=== PATIENT | male | born 1950 | race African-American/Black ===

== ENCOUNTER 2017-01-18 18:44 | Observation (INO) | payer OTHER ==
[2017-01-18] MEDS ORDERED: NS 1000 ML 1,000 ML ONE ×2 (18:58→19:57)
--- NOTE | 2017-01-18 19:10 | DR.GENAD ---
HPI - PCP Primary Care Physician: nfd - HPI Comment HPI Comment: PATIENT IS WEAK AND HAVING NEAR SYNCOPAL EPISODE. ALMOST FAINTED BEFORE COMING. ONE HR AGO, HE DEVELOPE SEVERE HEADACHE WHICH IS STILL PRESENT BUT NOT SEVERE. DENIES CHEST PAIN. NO NAUSEA OR VOMITING. - Complaint/Symptoms Chief Complaint Doctors Comments: HEADACHE TIMES ONE HOUR. BP LOW IN ED. Chief Complaint:: pt c/o bad headache and weakness in his leg pt states" I was fine till a hour ago then i got a bad headache" Self Treatment fo Chief Complaint: pt pt just started on blood pressure meds 2 or 3 days ago. pt states" re never had blood pressure problems before" - Nurses notes reviewed Nurses Notes Review: Yes - Source History Provided: Patient - Mode of Arrival Mode of Arrival: Wheelchair - Timing Onset of Chief Complaint: 01/18/17 Came on: Suddenly - Duration Duration: Constant Duration: Hours - Severity Severity: Moderate PMH - PMH Past Medical History: Yes Past Medical History: Coronary Artery Disease, Diabetes, Gout, Hypertension Past Surgical History: Yes Surgical History: Tonsillectomy - Family History History of Family Medical Conditions: Yes Family Medical History: Diabetes Mellitus, Cancer, [place], Hypertension - Social History Alcohol Use: None Do you use any recreational Drugs:: No Lives With: Family Lives Where: Home - infectious screening In the last 2 months have you had wt loss of >10#?: NO Have you had fever, night sweats or hemotysis?: No Have you traveled outside the country in the last 6 months?: No Isolation: Standard ROS - Review of Systems Constitutional: Weakness, Fatigue. negative: Chills, Fever Eyes: No Symptoms Reported. negative: Eye Pain, Discharge ENTM: No Symptoms Reported. negative: Ear Pain, Nose Discharge, Nose Congestion , Throat Pain Respiratoy: Non-Productive Cough, Short of Breath. negative: Wheezing, Hemoptysis Cardiovascular: Edema Gastrointestinal/Abdominal: Other (MELE[place]) Genitourinary: Hematuria Neurological: Headache, Weakness, Dizziness Musculoskeletal: Muscle Pain Integumentary: Change in Color Hematologic/Lymphatic: Easy Bruising Endocrine: No Symptoms Reported All Other Systems: Reviewed and Negative PE - Vital Signs Vitals: Temperature 98.7 F Pulse Rate 63 Respiratory Rate 18 Blood Pressure [Right Arm] 144/73 Blood Pressure [Left Arm] 119/62 Blood Pressure 77/41 O2 Sat by Pulse Oximetry 100 - General Limitations: No Limitations General Appearance: Alert - Head Head Exam: Normal Inspection - Eyes Eye exam: Normal Appearance - ENT ENT Exam: Normal External Ear Exam External Ear Exam: Normal External Inspection TM/Canal Exam: Bilateral Normal Nose Exam: Normal Nose Exam Mouth Exam: Normal Inspection Throat Exam: Normal Inspection - Neck Neck Exam: Trachea Midline - Chest Chest Inspection: Symmetric Chest Wall Rise - Respiratory Respiratory Exam: negative: Chest Wall Tenderness Respiratory Exam: Bilateral Rhonchi, Lower Rhonchi - Cardiovascular Cardiovascular Exam: Regular Rate, Normal Rhythm, Normal Heart Sounds - Abdominal Exam Abdominal Exam: Normal Bowel Sounds, Soft. negative: Tenderness - Extremities Extremities Exam: Edema (BILATERAL) - Back Back Exam: Paraspinal Tenderness - Neurologic Neurological Exam: Alert, Oriented X3 - Psychiatric Psychiatric Exam: Normal Affect, Normal Mood - Skin Skin Exam: Normal Color MDM - Additional Information Additional Information Obtained From: Family - Differential Diagnosis Differential Diagnosis: HYPOTENSION, DEHYDRATION, NEAR SYNCOPAL EPISODES Course - Treatment Treatment: SEE ORDERS - Consultation Consultation Comments: DISCUSS PATIENT WITH DR. BARROW. HE WILL ADMIT PATIENT. - Education/Counseling Education/Counseling: Patient, Family, Education Educated On: Treatment, Diagnosis ROR - Labs Reviewed Laboratory Results Reviewed?: Yes Result Diagrams: 01/18/17 19:00 01/18/17 19:00 Laboratory: WBC 6.6 X10^3/uL (3.6-10.0) 01/18/17 19:00 RBC 3.16 X10^6/uL (4.7-6.0) L 01/18/17 19:00 Hgb 11.0 g/dL (13.5-18.0) L 01/18/17 19:00 Hct 32.5 % (42.0-54.0) L 01/18/17 19:00 MCV 102.9 fL (80.0-100.0) H 01/18/17 19:00 MCH 34.7 pg (27.0-34.0) H 01/18/17 19:00 MCHC 33.7 g/dL (33.0-35.0) 01/18/17 19:00 RDW 15.0 % (11.6-16.5) 01/18/17 19:00 Plt Count 62 X10^3/uL (150.0-450.0) L 01/18/17 19:00 MPV 11.3 fL (7.4-11.0) H 01/18/17 19:00 Neut % 66.3 % (42.0-75.0) 01/18/17 19:00 Lymph % 20.5 % (21.0-51.0) L 01/18/17 19:00 [place] % 11.0 % (0.0-13.0) 01/18/17 19:00 Eos % 1.7 % (0.9-2.9) 01/18/17 19:00 Baso % 0.5 % (0.2-1.0) 01/18/17 19:00 Neut # 4.3 x10^3/uL (2.2-4.8) 01/18/17 19:00 Lymph # 1.3 X10^3/uL (1.3-2.9) 01/18/17 19:00 [place] # 0.7 x10^3/uL (0.3-0.8) 01/18/17 19:00 Eos # 0.1 x10^3/uL (0.0-0.2) 01/18/17 19:00 Baso # 0.0 X10^3/uL (0.0-0.1) 01/18/17 19:00 Absolute Nucleated RBC 0.1 /100WBC 01/18/17 19:00 Sodium 138 mmol/L (136-145) 01/18/17 19:00 Corrected Sodium 141 mmol/L (136-145) 01/18/17 19:00 Potassium 4.7 mmol/L (3.5-5.1) 01/18/17 19:00 Chloride 105 mmol/L (98-107) 01/18/17 19:00 Carbon Dioxide 24.7 mmol/L (21-32) 01/18/17 19:00 BUN 58 mg/dL (7-18) H 01/18/17 19:00 Creatinine 2.67 mg/dL (0.70-1.30) H 01/18/17 19:00 Est GFR (MDRD) Af Amer 31 (>60) L 01/18/17 19:00 Est GFR (MDRD) Non-Af 25 (>60) L 01/18/17 19:00 Glucose 211 mg/dL (65-99) H 01/18/17 19:00 Calcium 8.4 mg/dL (8.5-10.1) L 01/18/17 19:00 Corrected Calcium 10.0 mg/dL (8.5-10.1) 01/18/17 19:00 Magnesium 1.5 mg/dL (1.7-2.9) L 01/18/17 19:00 Total Bilirubin 1.20 mg/dL (0.2-1.0) H 01/18/17 19:00 AST 89 Units/L (15-37) H 01/18/17 19:00 ALT 58 Units/L (12-78) 01/18/17 19:00 Alkaline Phosphatase 168 Units/L (46-116) H 01/18/17 19:00 Creatine Kinase 105 Units/L (39-308) 01/18/17 19:00 CK-MB (CK-2) 1.2 ng/mL (0-4.0) 01/18/17 19:00 CK/CKMB % Calc 1.1 % (<4) 01/18/17 19:00 Troponin I 0.04 ng/mL (0-1.5) 01/18/17 19:00 Total Protein 7.6 g/dL (6.4-8.2) 01/18/17 19:00 Albumin 2.0 g/dL (3.4-5.0) L 01/18/17 19:00 Globulin 5.6 g/dL (2.5-4.5) H 01/18/17 19:00 Albumin/Globulin Ratio 0.4 Ratio (1.1-2.1) L 01/18/17 19:00 Stool Description Fob tube 01/18/17 19:05 Stl Occult Blood (IFOB) Positive (NEGATIVE) A 01/18/17 19:05 - XRAY XRAY Interpreted by: Radiologist XRAY Findings: DISCUSS REPORT WITH PATIENT AND FAMILY. - EKG Rhythm: NSR (EKG NOTED) - Diagnosis Discharge Problem: Dehydration, Near syncope Hypotension Qualifiers: Hypotension type: unspecified hypotension type Qualified Code(s): I95.9 - Hypotension, unspecified - Discharge Plan Disposition: ADMITTED INPATIENT Condition: Stable - Follow ups/Referrals - Instructions
[2017-01-18 19:12] LABS: BASOPHILS % (AUTO) 0.5 % (0.2-1.0); EOSINOPHILS # (AUTO) 0.1 x10^3/uL (0.0-0.2); EOSINOPHILS % (AUTO) 1.7 % (0.9-2.9); HEMATOCRIT 32.5 % (42.0-54.0); LYMPHOCYTES # (AUTO) 1.3 X10^3/uL (1.3-2.9); LYMPHOCYTES % (AUTO) 20.5 % (21.0-51.0); MEAN CORPUSCULAR HEMOGLOBIN 34.7 pg (27.0-34.0); MEAN CORPUSCULAR HGB CONC 33.7 g/dL (33.0-35.0); MEAN CORPUSCULAR VOLUME 102.9 fL (80.0-100.0); MEAN PLATELET VOLUME 11.3 fL (7.4-11.0); MONOCYTES # (AUTO) 0.7 x10^3/uL (0.3-0.8); NEUTROPHILS # (AUTO) 4.3 x10^3/uL (2.2-4.8); NEUTROPHILS % (AUTO) 66.3 % (42.0-75.0); PLATELET COUNT 62 X10^3/uL (150.0-450.0); RED BLOOD COUNT 3.16 X10^6/uL (4.7-6.0); WHITE BLOOD COUNT 6.6 X10^3/uL (3.6-10.0)
[2017-01-18 19:26] LABS: CALCIUM 8.4 mg/dL (8.5-10.1); CARBON DIOXIDE 24.7 mmol/L (21-32); CREATININE 2.67 mg/dL (0.70-1.30); TROPONIN I 0.04 ng/mL (0-1.5)
[2017-01-18 19:30] LABS: CKMB % 1.1 % (<4); CREATINE KINASE MB 1.2 ng/mL (0-4.0); MAGNESIUM 1.5 mg/dL (1.7-2.9); TOTAL PROTEIN 7.6 g/dL (6.4-8.2)
--- NOTE | 2017-01-18 20:14 | RAD ---
HISTORY: Hypotension Study: Single view of the chest. Comparison: 09/02/2016 Findings: Cardiomegaly and mild pulmonary vascular congestion. No focal consolidations, pleural effusions or p neumothorax. Osseous structures demonstrate no acute abnormality. IMPRESSION: 1. Cardiomegaly and mild pulmonary vascular congestion. Reported By:
--- NOTE | 2017-01-18 20:47 | CT ---
HEAD CT WITHOUT IV CONTRAST CLINICAL INDICATION: Headache TECHNIQUE: Axial CT images from skull base to vertex without IV contrast.Dose reduction techniques i ncluding Automated Exposure Control (AEC) and adjustment of mA and kV were utlized. COMPARISON: 05/14/2013 FINDINGS: There is no abnormal brain parenchymal density. There is no evidence of acute infarction, intracran ial hemorrhage, mass or mass effect, or abnormal extra-axial collection. The density of the larger d ural venous sinuses is normal. The ventricles are normal in size, shape and position. The skull base and calvarium are normal. The included paranasal sinuses and mastoid air cells are predominantly cl ear. IMPRESSION: 1. No acute intracranial abnormality. Reported By:
[2017-01-18 21:06] LABS: BILIRUBIN,URINE NEGATIVE (NEGATIVE); BLOOD/HEMOGLOBIN,URINE 1+ (NEGATIVE); GLUCOSE, URINE NEGATIVE (NEGATIVE); KETONES,URINE NEGATIVE (NEGATIVE); LEUKOCYTE ESTERASE ,URINE 1+ (NEGATIVE); NITRITES,URINE NEGATIVE (NEGATIVE); PROTEIN,URINE NEGATIVE (NEGATIVE); UROBILINOGEN,URINE NORMAL (NORMAL)
[2017-01-18 21:14] LABS: APPEARANCE,URINE CLEAR (CLEAR); COLOR,URINE YELLOW (YELLOW); RBC,URINE 0-2 /HPF (NEGATIVE)
[2017-01-18 21:15] LABS: BACTERIA,URINE TRACE /HPF (NEGATIVE); SQUAMOUS EPITHELIAL CELL,UR RARE /HPF (NEGATIVE)
[2017-01-18 23:41] VITALS: BMI 32.0
[2017-01-19 02:11] LABS: CKMB % 1.3 % (<4); CREATINE KINASE MB 1.1 ng/mL (0-4.0); TROPONIN I 0.03 ng/mL (0-1.5)
[2017-01-19] MEDS: NS 1000 ML 1,000 ML IV SCH ×2 (02:28→07:20)
[2017-01-19] MEDS ORDERED: NEURONTIN CAP 100 MG PO ONE (02:47)
[2017-01-19 06:12] LABS: BASOPHILS % (AUTO) 0.8 % (0.2-1.0); EOSINOPHILS # (AUTO) 0.1 x10^3/uL (0.0-0.2); EOSINOPHILS % (AUTO) 1.6 % (0.9-2.9); HEMATOCRIT 26.9 % (42.0-54.0); HEMOGLOBIN 9.1 g/dL (13.5-18.0); LYMPHOCYTES # (AUTO) 1.3 X10^3/uL (1.3-2.9); LYMPHOCYTES % (AUTO) 22.5 % (21.0-51.0); MEAN CORPUSCULAR HEMOGLOBIN 34.8 pg (27.0-34.0); MEAN CORPUSCULAR HGB CONC 33.8 g/dL (33.0-35.0); MEAN CORPUSCULAR VOLUME 103.1 fL (80.0-100.0); MONOCYTES # (AUTO) 0.5 x10^3/uL (0.3-0.8); MONOCYTES % (AUTO) 9.4 % (0.0-13.0); NEUTROPHILS # (AUTO) 3.7 x10^3/uL (2.2-4.8); NEUTROPHILS % (AUTO) 65.7 % (42.0-75.0); PLATELET COUNT 69 X10^3/uL (150.0-450.0); RED BLOOD COUNT 2.61 X10^6/uL (4.7-6.0); RED CELL DISTRIBUTION WIDTH 14.9 % (11.6-16.5); WHITE BLOOD COUNT 5.6 X10^3/uL (3.6-10.0)
[2017-01-19 06:23] LABS: ALBUMIN 1.7 g/dL (3.4-5.0); CALCIUM 7.6 mg/dL (8.5-10.1); CARBON DIOXIDE 24.9 mmol/L (21-32); CKMB % 1.6 % (<4); COR CA(FOR HYPOALB) 9.4 mg/dL (8.5-10.1); CREATINE KINASE MB 1.2 ng/mL (0-4.0); CREATININE 2.13 mg/dL (0.70-1.30); TOTAL PROTEIN 6.4 g/dL (6.4-8.2); TROPONIN I 0.03 ng/mL (0-1.5)
[2017-01-19 13:36] VITALS: BP 136/61
== END 2017-01-19 14:40 | disposition home or self-care (01) ==
LOC: ER 18:44 → OBS 22:32
PROVIDERS: ADMIT Obstetrics & Gynecology Obstetrics; ATTEND Internal Medicine
DX: R55 Syncope and collapse (principal); N39.0 Urinary tract infection, site not specified; E86.0 Dehydration; I95.89 Other hypotension; D64.89 Other specified anemias; R79.1 Abnormal coagulation profile; R94.4 Abnormal results of kidney function studies; R06.02 Shortness of breath; R53.83 Other fatigue; I51.7 Cardiomegaly; R94.31 Abnormal electrocardiogram [ECG] [EKG]; E11.65 Type 2 diabetes mellitus with hyperglycemia; R79.82 Elevated C-reactive protein (CRP); R19.5 Other fecal abnormalities
CPT/HCPCS: 36415; 70450; 71010; 80053; 81001; 82270; 82550; 82553; 83735; 83880; 84484; 85025; 85610; 85730; 93005; 93010; 94760; 96365; 96367; 99284; A4222; G8978; G8979; G0378

== ENCOUNTER 2017-05-01 16:39 | Inpatient (IN) | payer OTHER ==
--- NOTE | 2017-05-01 16:55 | DR.GENAD ---
HPI - PCP Primary Care Physician: NFD - HPI Comment HPI Comment: HISTORY BELOW. - Complaint/Symptoms Chief Complaint Doctors Comments: LEFT FOOT PAIN, LOWER EXTREMITY EDMA AND INCREASING SOB FOR SEVERAL DAYS. ANDRES ORTA SEEM TO BE WORKING, NO FEVER. PATIENT IS A DIABETIC, HAVE PAINFUL CALUSES ON LEFT FOOT. HE IS TRYING TO REMOVE CANLUS AND AREA IS PAINFULL AND RED. NO DRAINAGE. Chief Complaint:: PT. C/O LEFT ARM PAIN THAT ACHES ALL OF THE TIME WELL DECREASED STRENGTH TO LEFT ARM. PT. C/O PAIN TO TOES ON LEFT FOOT AND SWELLING. - Nurses notes reviewed Nurses Notes Review: Yes - Source History Provided: Patient - Mode of Arrival Mode of Arrival: Ambulatory - Timing Onset of Chief Complaint: 04/17/17 Came on: Suddenly - Duration Duration: Constant Duration: Days - Severity Severity: Moderate PMH - PMH Past Medical History: Yes Past Medical History: Coronary Artery Disease, Diabetes, Gout, Hypertension Past Surgical History: Yes Surgical History: Tonsillectomy, Other Past Surgical History Comment: PACEMAKER/DEFIBILLATOR - Family History History of Family Medical Conditions: Yes Family Medical History: Diabetes Mellitus, Cancer, [place], Hypertension - Social History Does patient currently use any type of tobacco product: Yes Have you used tobacco products in the last 12 months: Yes Type of Tobacco Use: Cigarettes How many years tobacco product used: 30 Does any household member use tobacco: No Alcohol Use: None Do you use any recreational Drugs:: No Lives With: Significant Other Lives Where: Home - infectious screening In the last 2 months have you had wt loss of >10#?: NO Have you had fever, night sweats or hemotysis?: No Have you traveled outside the country in the last 6 months?: No Isolation: Standard ROS - Review of Systems Constitutional: Weakness, Fatigue. negative: Chills, Fever Eyes: No Symptoms Reported. negative: Eye Pain, Discharge ENTM: No Symptoms Reported. negative: Ear Pain, Nose Discharge, Nose Congestion , Throat Pain Respiratoy: Non-Productive Cough, Short of Breath, Wheezing. negative: Hemoptysis Cardiovascular: Chest Pain, Edema Gastrointestinal/Abdominal: No Symptoms Reported, Abdominal Pain, Diarrhea Neurological: Headache, Weakness Musculoskeletal: Muscle Pain, Right, Left, Leg, Foot Integumentary: Change in Color Hematologic/Lymphatic: Easy Bruising Endocrine: No Symptoms Reported All Other Systems: Reviewed and Negative PE - Vital Signs Vitals: Temperature 98.0 F Pulse Rate 68 Respiratory Rate 17 Blood Pressure [Right Arm] 136/61 Blood Pressure [Left Arm] 128/59 Blood Pressure 142/72 O2 Sat by Pulse Oximetry 100 - General Limitations: No Limitations General Appearance: Alert - Head Head Exam: Normal Inspection - Eyes Eye exam: Normal Appearance - ENT ENT Exam: Normal External Ear Exam External Ear Exam: Normal External Inspection TM/Canal Exam: Bilateral Normal Nose Exam: Normal Nose Exam Mouth Exam: Normal Inspection Throat Exam: Normal Inspection - Neck Neck Exam: Trachea Midline - Chest Chest Inspection: Symmetric Chest Wall Rise - Respiratory Respiratory Exam: Respiratory Distress Respiratory Exam: Bilateral Wheezing, Bilateral Rhonchi, Upper Rhonchi, Lower Wheezing, Lower Rhonchi - Cardiovascular Cardiovascular Exam: Regular Rate, Normal Rhythm, Tachycardia - Abdominal Exam Abdominal Exam: Normal Bowel Sounds, Soft. negative: Tenderness - Extremities Extremities Exam: Tenderness, Edema, Other (TOES TENDER RIGHT 2ND AND 3RD TOES . FOOT AND LEG SWOLLEN AND TENDER.) - Back Back Exam: Normal Inspection - Neurologic Neurological Exam: Alert, Oriented X3 - Psychiatric Psychiatric Exam: Normal Affect, Normal Mood - Skin Skin Exam: Erythema MDM - Additional Information Additional Information Obtained From: Family - Differential Diagnosis Differential Diagnosis: CHF. PULMONARY EDEMA, PNEUMONIA, [place], CELLULITIS. LOWER EXTREMITY PAIN Course - Treatment Treatment: SEE ORDERS. LASIX 80MG IV, NO URINE OUTPUT. BUMEX IMG IV, - Consultation Consultation Comments: DISCUSS PATIENT WITH DR. HOFFMANN. HE WILL ADMIT PATIENT. - Education/Counseling Education/Counseling: Patient, Education Educated On: Treatment, Diagnosis, Needs for Follow Up ROR - Labs Reviewed Laboratory Results Reviewed?: Yes Result Diagrams: 05/01/17 17:23 05/01/17 17:23 Laboratory: WBC 5.2 X10^3/uL (3.6-10.0) 05/01/17 17:23 RBC 3.16 X10^6/uL (4.7-6.0) L 05/01/17 17:23 Hgb 11.4 g/dL (13.5-18.0) L 05/01/17 17:23 Hct 32.7 % (42.0-54.0) L 05/01/17 17:23 MCV 103.7 fL (80.0-100.0) H 05/01/17 17:23 MCH 36.0 pg (27.0-34.0) H 05/01/17 17: MCHC 34.7 g/dL (33.0-35.0) 05/01/17: RDW 14.2 % (11.6-16.5) 05/01/17: Plt Count 47 X10^3/uL (150.0-450.0) L 05/01/17: Plt Count Comment Decreased (ADEQUATE) 05/01/17: MPV 11.6 fL (7.4-11.0) H 05/01/17 17: Neut % 64.7 % (42.0-75.0) 05/01/17: Lymph % 22.4 % (21.0-51.0) 05/01/17: [place] % 10.8 % (0.0-13.0) 05/01/17: Eos % 1.8 % (0.9-2.9) 05/01/17: Baso % 0.3 % (0.2-1.0) 05/01/17 17: Neut # 3.4 x10^3/uL (2.2-4.8) 05/01/17 17: Lymph # 1.2 X10^3/uL (1.3-2.9) L 05/01/17 17: [place] # 0.6 x10^3/uL (0.3-0.8) 05/01/17: Eos # 0.1 x10^3/uL (0.0-0.2) 05/01/17 17: Baso # 0.0 X10^3/uL (0.0-0.1) 05/01/17: Absolute Nucleated RBC 0.1 /100WBC 05/01/17 17: Plt Morphology Comment Normal (NORMAL) 05/01/17 17: RBC Morphology Abnormal (NORMAL) 05/01/17 17: Hypochromasia Slight A 05/01/17 17:23 Anisocytosis Slight A 05/01/17 17: Microcytosis Slight A 05/01/17 17: Macrocytosis Slight A 05/01/17 17:23 Sodium 137 mmol/L (136-145) 05/01/17 17:23 Corrected Sodium 141 mmol/L (136-145) 05/01/17 17:23 Potassium 3.6 mmol/L (3.5-5.1) 05/01/17 17:23 Chloride 103 mmol/L (98-107) 05/01/17 17:23 Carbon Dioxide 28.6 mmol/L (21-32) 05/01/17 17:23 BUN 33 mg/dL (7-18) H 05/01/17 17:23 Creatinine 1.87 mg/dL (0.70-1.30) H 05/01/17 17:23 Est GFR (MDRD) Af Amer 46 (>60) L 05/01/17 17:23 Est GFR (MDRD) Non-Af 38 (>60) L 05/01/17 17:23 Glucose 257 mg/dL (65-99) H 05/01/17 17:23 Calcium 8.1 mg/dL (8.5-10.1) L 05/01/17 17:23 Corrected Calcium 9.8 mg/dL (8.5-10.1) 05/01/17 17:23 Total Bilirubin 1.50 mg/dL (0.2-1.0) H 05/01/17 17:23 AST 131 Units/L (15-37) H 05/01/17 17:23 ALT 70 Units/L (12-78) 05/01/17 17:23 Alkaline Phosphatase 247 Units/L (46-116) H 05/01/17 17:23 Creatine Kinase 207 Units/L (39-308) 05/01/17 17:23 CK-MB (CK-2) 1.9 ng/mL (0-4.0) 05/01/17 17:23 CK/CKMB % Calc 0.9 % (<4) 05/01/17 17:23 Troponin I 0.02 ng/mL (0-1.5) 05/01/17 17:23 B-Natriuretic Peptide 533 pg/mL (0-79) H* 05/01/17 17:23 Total Protein 7.2 g/dL (6.4-8.2) 05/01/17 17:23 Albumin 1.9 g/dL (3.4-5.0) L 05/01/17 17:23 Globulin 5.3 g/dL (2.5-4.5) H 05/01/17 17:23 Albumin/Globulin Ratio 0.4 Ratio (1.1-2.1) L 05/01/17 17:23 - XRAY XRAY Interpreted by: Radiologist XRAY Findings: REPORT DISCUSS WITH PATIENT. - EKG Rhythm: Paced (EKG NOTED.) - Diagnosis Discharge Problem: Pulmonary congestion CHF (congestive heart failure) Qualifiers: Congestive heart failure type: combined Congestive heart failure chronicity: acute on chronic Qualified Code(s): I50.43 - Acute on chronic combined systolic (congestive) and diastolic (congestive) heart failure Cellulitis Qualifiers: Site of cellulitis: extremity Site of cellulitis of extremity: lower extremity Laterality: left Qualified Code(s): L03.116 - Cellulitis of left lower limb - Discharge Plan Disposition: ADMITTED INPATIENT Condition: Stable - Follow ups/Referrals - Instructions
[2017-05-01 17:35] LABS: BASOPHILS % (AUTO) 0.3 % (0.2-1.0); EOSINOPHILS # (AUTO) 0.1 x10^3/uL (0.0-0.2); EOSINOPHILS % (AUTO) 1.8 % (0.9-2.9); HEMATOCRIT 32.7 % (42.0-54.0); HEMOGLOBIN 11.4 g/dL (13.5-18.0); LYMPHOCYTES # (AUTO) 1.2 X10^3/uL (1.3-2.9); LYMPHOCYTES % (AUTO) 22.4 % (21.0-51.0); MEAN CORPUSCULAR HGB CONC 34.7 g/dL (33.0-35.0); MEAN CORPUSCULAR VOLUME 103.7 fL (80.0-100.0); MEAN PLATELET VOLUME 11.6 fL (7.4-11.0); MONOCYTES # (AUTO) 0.6 x10^3/uL (0.3-0.8); MONOCYTES % (AUTO) 10.8 % (0.0-13.0); NEUTROPHILS # (AUTO) 3.4 x10^3/uL (2.2-4.8); NEUTROPHILS % (AUTO) 64.7 % (42.0-75.0); PLATELET COUNT 47 X10^3/uL (150.0-450.0); RED BLOOD COUNT 3.16 X10^6/uL (4.7-6.0); RED CELL DISTRIBUTION WIDTH 14.2 % (11.6-16.5); WHITE BLOOD COUNT 5.2 X10^3/uL (3.6-10.0)
[2017-05-01 17:48] LABS: CALCIUM 8.1 mg/dL (8.5-10.1); CARBON DIOXIDE 28.6 mmol/L (21-32); CREATININE 1.87 mg/dL (0.70-1.30); TROPONIN I 0.02 ng/mL (0-1.5)
[2017-05-01 17:51] LABS: ANISOCYTOSIS SLIGHT; HYPOCHROMASIA SLIGHT; MICROCYTOSIS SLIGHT; PLATELET MORPHOLOGY COMMENT NORMAL (NORMAL)
[2017-05-01 17:52] LABS: ALBUMIN 1.9 g/dL (3.4-5.0); CKMB % 0.9 % (<4); COR CA(FOR HYPOALB) 9.8 mg/dL (8.5-10.1); CREATINE KINASE MB 1.9 ng/mL (0-4.0); TOTAL PROTEIN 7.2 g/dL (6.4-8.2)
--- NOTE | 2017-05-01 18:13 | RAD ---
HISTORY: Chest pain and left upper extremity pain Study: Single-view chest Comparison: January 18, 2017 Findings: The trachea is midline. The cardiac silhouette is enlarged in size. A cardiac pacing device is in p lace. There is pulmonary vascular congestion which is similar in appearance to prior exam. No focal consolidation or pleural effusion is identified. The bony thorax is grossly intact. IMPRESSION: 1. Cardiomegaly and pulmonary vascular congestion which is similar in appearance to prior exams Reported By:
--- NOTE | 2017-05-01 18:17 | RAD ---
Left foot two views Indication: Left foot pain. Findings: There is mild great toe MTP joint degenerative change and great toe IP joint degenerative change. No displaced fracture seen. Minimal regularity of the great toe proximal phalanx noted. This is possibly chronic. There is soft tissue swelling over the forefoot. Impression: 1. Remodeling of the 5th toe proximal phalanx, probably chronic. Correlate clinically for any signs of infection. 2. Irregularity of the great toe proximal phalanx. Correlate clinically for any history of pain or t rauma air. 3. Diffuse soft tissue swelling without displaced fracture. Mild degenerative changes. Reported By:
[2017-05-01 18:58] LABS: BILIRUBIN,URINE NEGATIVE (NEGATIVE); BLOOD/HEMOGLOBIN,URINE 2+ (NEGATIVE); GLUCOSE, URINE 1+ (NEGATIVE); KETONES,URINE NEGATIVE (NEGATIVE); LEUKOCYTE ESTERASE ,URINE NEGATIVE (NEGATIVE); NITRITES,URINE NEGATIVE (NEGATIVE); PROTEIN,URINE NEGATIVE (NEGATIVE); UROBILINOGEN,URINE 1+ (NORMAL)
[2017-05-01] MEDS ORDERED: LASIX IVP ONE (19:01)
[2017-05-01] MEDS ORDERED: LASIX ONE (19:18)
[2017-05-01 19:31] LABS: APPEARANCE,URINE CLEAR (CLEAR); BACTERIA,URINE NEGATIVE /HPF (NEGATIVE); COLOR,URINE YELLOW (YELLOW); RBC,URINE 0-2 /HPF (NEGATIVE); SQUAMOUS EPITHELIAL CELL,UR NEGATIVE /HPF (NEGATIVE)
[2017-05-01] MEDS ORDERED: BUMEX INJ 1 MG VIAL IVP ONE (21:38)
[2017-05-01] MEDS ORDERED: ZOFRAN INJ 4 MG VIAL IVP PRN (21:41)
[2017-05-01] MEDS: NS 1000 ML 1,000 ML IV SCH (22:45)
[2017-05-01] MEDS: MORPHINE SULFATE INJ 4 MG IVP PRN (22:55)
[2017-05-01 23:07] LABS: CKMB % 0.8 % (<4); CREATINE KINASE MB 1.6 ng/mL (0-4.0); TROPONIN I 0.03 ng/mL (0-1.5)
[2017-05-02 00:34] VITALS: BMI 32.6
[2017-05-02] MEDS: CLEOCIN 600 MG IV PREMIX 600 MG/50 ML BAG IV SCH ×2 (03:05→13:56)
[2017-05-02 05:21] LABS: BASOPHILS % (AUTO) 0.7 % (0.2-1.0); EOSINOPHILS # (AUTO) 0.1 x10^3/uL (0.0-0.2); EOSINOPHILS % (AUTO) 1.8 % (0.9-2.9); HEMATOCRIT 30.6 % (42.0-54.0); HEMOGLOBIN 10.6 g/dL (13.5-18.0); LYMPHOCYTES # (AUTO) 1.3 X10^3/uL (1.3-2.9); LYMPHOCYTES % (AUTO) 28.5 % (21.0-51.0); MEAN CORPUSCULAR HEMOGLOBIN 35.8 pg (27.0-34.0); MEAN CORPUSCULAR HGB CONC 34.5 g/dL (33.0-35.0); MEAN CORPUSCULAR VOLUME 103.6 fL (80.0-100.0); MONOCYTES # (AUTO) 0.5 x10^3/uL (0.3-0.8); MONOCYTES % (AUTO) 10.9 % (0.0-13.0); NEUTROPHILS # (AUTO) 2.7 x10^3/uL (2.2-4.8); NEUTROPHILS % (AUTO) 58.1 % (42.0-75.0); PLATELET COUNT 66 X10^3/uL (150.0-450.0); RED BLOOD COUNT 2.95 X10^6/uL (4.7-6.0); RED CELL DISTRIBUTION WIDTH 14.4 % (11.6-16.5); WHITE BLOOD COUNT 4.7 X10^3/uL (3.6-10.0)
[2017-05-02 05:27] LABS: ALBUMIN 1.7 g/dL (3.4-5.0); CALCIUM 7.6 mg/dL (8.5-10.1); CARBON DIOXIDE 30.4 mmol/L (21-32); COR CA(FOR HYPOALB) 9.4 mg/dL (8.5-10.1); CREATININE 1.79 mg/dL (0.70-1.30); MAGNESIUM 1.3 mg/dL (1.7-2.9); TOTAL PROTEIN 6.6 g/dL (6.4-8.2)
[2017-05-02 05:44] LABS: CREATINE KINASE MB 1.6 ng/mL (0-4.0); TROPONIN I 0.04 ng/mL (0-1.5)
[2017-05-02] MEDS: HumuLIN R SUBCUT PRN ×3 (06:04→20:06)
[2017-05-02] MEDS ORDERED: K-DUR TAB 20 MEQ PO SCH (09:00)
[2017-05-02] MEDS: LASIX IVP SCH ×2 (09:34→20:07)
[2017-05-02] MEDS ORDERED: NITROSTAT SL PRN (10:16)
[2017-05-02] MEDS ORDERED: PATIENT'S HOME MEDICATION (Hydralazine Hcl [Hydralazine Hcl 50 Mg] 50 MG) PO SCH (10:30)
[2017-05-02] MEDS ORDERED: PATIENT'S HOME MEDICATION (Ascorbic Acid [Vitamin C] 1,000 MG) PO SCH (10:30)
[2017-05-02] MEDS ORDERED: VITAMIN C ONE (10:31)
[2017-05-02] MEDS ORDERED: APRESOLINE TAB 25 MG ONE (10:31)
[2017-05-02] MEDS: COREG TAB 25 MG PO SCH (10:36)
[2017-05-02] MEDS: ALDACTONE TAB 25 MG PO SCH (10:36)
[2017-05-02] MEDS: NEURONTIN CAP 300 MG PO SCH ×3 (10:37→21:06)
[2017-05-02] MEDS: ZANTAC PO SCH (10:37)
[2017-05-02] MEDS: ASPIRIN EC 81 MG PO SCH (10:37)
[2017-05-02] MEDS: FLOMAX PO SCH (10:37)
[2017-05-02] MEDS: FORTAZ or TAZICEF INJ 1 GM in NS 50 ML IV + SPIKE MINIBAG* 50 ML IV SCH ×3 (10:42→21:06)
[2017-05-02] MEDS ORDERED: PHARMACY CONSULT - VANCOMYCIN XX SCH (11:00)
[2017-05-02] MEDS ORDERED: HumuLIN R SUBCUT PRN (11:00)
[2017-05-02] MEDS: K-DUR TAB 20 MEQ PO SCH (11:02)
[2017-05-02] MEDS: VANCOMYCIN 1 GM PREMIX (ADDVANTAGE) 250 ML IV SCH ×2 (11:03→20:05)
[2017-05-02] MEDS: VITAMIN C PO SCH (11:19)
[2017-05-02] MEDS ORDERED: INSULIN ASPART 8 UNIT SC SCH (12:00)
[2017-05-02] MEDS: APRESOLINE TAB 25 MG PO SCH ×2 (14:05→21:06)
--- NOTE | 2017-05-02 15:47 | DR.H&P ---
H&P - History & Physical for Day of: H&P Date: 05/01/17 - Chief Complaint Chief Complaint: left foot pain, lower extremity edma - Allergies Allergies/Adverse Reactions: Allergies Allergy/AdvReac Type Severity Reaction Status Date / Time MS Haloperidol [From Haldol] Allergy Mild Verified 05/01/17 16:43 MS Acetaminophen Allergy Unknown Verified 05/01/17 16:43 [From Tylenol] MS Amitriptyline Allergy Verified 05/01/17 16:43 [From Elavil] MS Pork Allergy AdvReac Verified 05/01/17 16:43 [Pork Allergy] - History of Present Illness History of Present Illness: Patient is a 66yo male who presented to the emergency room with complaint of left foot pain, lower extremity edema and increasing shortness of breath for the past several days. Patient also complained of left arm pain and decreased strength. Patient has a history of coronary artery disease, Diabetes Mellitus typ2, Gout, Hypertension, pacemaker/ defibrillator. Patient admitted with diagnosis of Labs on arrival within normal limits with the exception of RBC 3.16, Hgb 11.4, Hct 32.7, MCV 103.7, MCH 36.0, Plt count 47, MPV 11.6, Hypochromasia Slight A, Anisocytosis slight a, microcytosis slight a, macrocytosis slight a, BUN 33, Creatinine 1.87, Est GFR 38, Total bilirubin 1.50, AST 131, Alkaline phosphatase 247, BNP 533, Albumin 1.9, Globulin 5.3, Albumin/globulin ratio 0.4. Foot xray remodeling of the 5th toe proximal phalanx chronic, irregularity of the great toe, diffuse soft tissue swelling without displaced fracture, mild degenerative changes. Chest Xray cardiomegaly and pulmonary vascular congestion which is similar in appearance to prior exam. EKG shows ventricular paced rate of 70. Patient admitted started on NS@20ml/hr, Cleocin IV, Lasix 40mg IV BID. - Past Medical History Past Medical History: Coronary Artery Disease, Diabetes, Gout, Hypertension Additional Medical History: pacemaker, defibrillator - Past Surgical History Surgical History: Tonsillectomy, Other - Family History Family Medical History: Diabetes Mellitus, Cancer, [place], Hypertension - Social History Does patient currently use any type of tobacco product: Yes Have you used tobacco products in the last 12 months: Yes Type of Tobacco Use: Cigarettes How many years tobacco product used: 30 Does any household member use tobacco: No Alcohol Use: None Drug Use: None - Medications Home Medications: Ascorbic Acid [Vitamin C] 1,000 mg PO DAILY 05/02/17 [History Confirmed 05/02/17 ] Aspirin EC [ASPIRIN EC 81 MG *] 81 mg PO DAILY 05/02/17 [History Confirmed 05/02] Carvedilol [Coreg Tab 25 mg] 25 mg PO DAILY 05/02/17 [History Confirmed 05/02/17 ] Furosemide 80 mg PO BID 05/02/17 [History Confirmed 05/02/17] Gabapentin 300 mg PO TID 05/02/17 [History Confirmed 05/02/17] Hydralazine HCl [Hydralazine HCl 50 mg] 50 mg PO TID 05/02/17 [History Confirmed 05/02/17] Insulin Aspart [NovoLog insulin 10 mL vial] 8 unit SC TIDWM 05/02/17 [History Confirmed 05/02/17] Insulin Glargine (Lantus) [LANTUS INSULIN 10 ML VIAL *] 35 units SC HS 05/02/17 [History Confirmed 05/02/17] Nitroglycerin Sublingual [NITROSTAT SUBLING TAB 0.4 MG *] 0.4 mg SL PRN PRN [History Confirmed 05/02/17] Potassium Chloride [K-Dur Tab 20 Meq] 20 meq PO DAILY 05/02/17 [History Confirmed 05/02/17] Ranitidine HCl [Ranitidine [address]] 150 mg PO DAILY 05/02/17 [History Confirmed 05/02/17] Spironolactone 25 mg PO DAILY 05/02/17 [History Confirmed 05/02/17] Tamsulosin HCl [Flomax] 0.4 mg PO DAILY 05/02/17 [History Confirmed 05/02/17] - Review of Systems Constitutional: Weakness Eyes: No Symptoms Reported ENT: No Symptoms Reported Respiratory: Shortness of Breath Cardiovascular: Edema Gastrointestinal: No Symptoms Reported Genitourinary: No Symptoms Reported Musculoskeletal: Leg Pain, Foot Pain Skin: No Symptoms Reported Neurological: No Symptoms Reported - Physical Exam Vital Signs: 98.0, 68, 17, 100%, 142/42. Oriented: Normal Eyes: Normal Ear: Normal Nose: Normal Throat: Normal Respiratory: Clear Throughout Cardiovascular: Edema (lower extremity bilateral) : Normal Auscultation: Bowel Sounds: Normal Palpation: Normal Tenderness: Normal Skin: Normal Musculoskeletal: Swelling (lower extremity) Psychiatric: Normal Mood Description: Calm, Appropriate Affect: Normal Speech Pattern: Clear, Appropriate - Assessment/Plan (1) Cellulitis Qualifiers: Site of cellulitis: extremity Site of cellulitis of extremity: lower extremity Site of cellulitis of trunk: S Laterality: left Qualified Code(s ): L03.116 - Cellulitis of left lower limb Status: Acute Plan: cleocin 600mg IV Q8hr (2) Pulmonary congestion Status: Acute Plan: lasix 40mg IV BID (3) CHF (congestive heart failure) Qualifiers: Congestive heart failure type: combined Congestive heart failure chronicity : acute on chronic Qualified Code(s): I50.43 - Acute on chronic combined systolic (congestive) and diastolic (congestive) heart failure Status: Chronic Plan: lasix 40mg IV BID (4) Diabetes mellitus Qualifiers: Diabetes mellitus type: D Diabetes mellitus complication status: D Diabetes mellitus complication detail: D Diabetic retinopathy severity: D Proliferative retinopathy type: P Diabetes mellitus macular edema: D Diabetes mellitus long-term insulin use: D Laterality: L Chronic kidney disease stage: C Status: Chronic Plan: OTBS ACHS regular insulin SSC
--- NOTE | 2017-05-02 15:51 | PCM.PROG ---
Progress Note - Progress Note for Day of Date: 05/02/17 - Subjective Subjective: Patient is a 66yo male who was admitted with CHF, pulmonary congestion and R foot pain and cellulitis. Patient states he has been having pain in his right foot and bilateral lower extremity edema that has not improved with his Lasix 80mg PO BID at home. Vital signs this am 98.4, 65, 15, 100%, 125/68. Labs this within normal limits with the exception of RBC 2.95, Hgb 10.6, Hct 30.6, MCV 103.6, MCH 35.8, Plt count 66, INR 1.40, BUN 32, Creatinine 1.79, Est GFR 40, Glucose 296, Clacium 7.6, Magnesium 1.3, Total bilirubin 1.10, AST 115, Alkaline phosphatase 247, Albumin 1.7, Globulin 4.9, albumin/globulin ratio 0.3. Cardiac enzymes have remained normal and EKG remained with a ventricular paced rhythm. We are going to discontinue cleocin and start vancomycin and fortaz. We are also going to continue home medications with the exception of Lasix. We are also going to order an ECHO for cardiac workup due to CHF and pulmonary congestion, 3 phase bone scan related to leg pain. - Past Medical Family Social History Past Med/Fam/Surg Hx: No changes since H&P Allergies: Allergies MS Haloperidol [From Haldol] Allergy (Mild, Verified 05/01/17 16:43) MS Acetaminophen [From Tylenol] Allergy (Unknown, Verified 05/01/17 16:43) "DOCTORS TOLD ME NOT TO TAKE " DUE TO LIVER ISSUES MS Amitriptyline [From Elavil] Allergy (Verified 05/01/17 16:43) MS Pork Allergy [Pork Allergy] Adverse Reaction (Verified 05/01/17 16:43) - Review of Systems ROS: No change since H&P - Vital Signs and I&O's Vital Signs: 98.4, 65, 15, 100%, 125/68 Intake and Output: Intake & Output 04/30/17 05/01/17 05/02/17 05/03/17 11:59 11:59 11:59 11:59 Intake Total 817 600 Output Total 1700 1450 Balance -883 -850 - Physical Exam Oriented: Normal Eyes: Normal Ear: Normal Nose: Normal Throat: Normal Respiratory: Normal Cardiovascular: Edema (lower extremity bilateral) : Normal Auscultation: Bowel Sounds: Normal Palpation: Normal Tenderness: Normal Skin: Normal Musculoskeletal: Swelling (lower extremity) Psychiatric: Normal Mood Description: Calm, Appropriate Affect: Normal Speech Pattern: Clear, Appropriate - Laboratory and Diagnostics Result Diagrams: 05/02/17 04:50 05/02/17 04:50 Labs: Laboratory WBC 4.7 X10^3/uL (3.6-10.0) 05/02/17 04:50 RBC 2.95 X10^6/uL (4.7-6.0) L 05/02/17 04:50 Hgb 10.6 g/dL (13.5-18.0) L 05/02/17 04:50 Hct 30.6 % (42.0-54.0) L 05/02/17 04:50 MCV 103.6 fL (80.0-100.0) H 05/02/17 04:50 MCH 35.8 pg (27.0-34.0) H 05/02/17 04:50 MCHC 34.5 g/dL (33.0-35.0) 05/02/17 04:50 RDW 14.4 % (11.6-16.5) 05/02/17 04:50 Plt Count 66 X10^3/uL (150.0-450.0) L 05/02/17 04:50 Plt Count Comment Decreased (ADEQUATE) 05/01/17 17:23 MPV 10.0 fL (7.4-11.0) 05/02/17 04:50 Neut % 58.1 % (42.0-75.0) 05/02/17 04:50 Lymph % 28.5 % (21.0-51.0) 05/02/17 04:50 [place] % 10.9 % (0.0-13.0) 05/02/17 04:50 Eos % 1.8 % (0.9-2.9) 05/02/17 04:50 Baso % 0.7 % (0.2-1.0) 05/02/17 04:50 Neut # 2.7 x10^3/uL (2.2-4.8) 05/02/17 04:50 Lymph # 1.3 X10^3/uL (1.3-2.9) 05/02/17 04:50 [place] # 0.5 x10^3/uL (0.3-0.8) 05/02/17 04:50 Eos # 0.1 x10^3/uL (0.0-0.2) 05/02/17 04:50 Baso # 0.0 X10^3/uL (0.0-0.1) 05/02/17 04:50 Absolute Nucleated RBC 0.1 /100WBC 05/02/17 04:50 Plt Morphology Comment Normal (NORMAL) 05/01/17 17:23 RBC Morphology Abnormal (NORMAL) 05/01/17 17:23 Hypochromasia Slight A 05/01/17 17:23 Anisocytosis Slight A 05/01/17 17:23 Microcytosis Slight A 05/01/17 17:23 Macrocytosis Slight A 05/01/17 17:23 INR Target Range - 05/02/17 04:50 INR 1.40 (0.8-1.3) H 05/02/17 04:50 PTT 35.2 SECONDS (22.9-36.5) 05/02/17 04:50 PTT Comment - 05/02/17 04:50 Sodium 139 mmol/L (136-145) 05/02/17 04:50 Corrected Sodium 144 mmol/L (136-145) 05/02/17 04:50 Potassium 3.7 mmol/L (3.5-5.1) 05/02/17 04:50 Chloride 103 mmol/L (98-107) 05/02/17 04:50 Carbon Dioxide 30.4 mmol/L (21-32) 05/02/17 04:50 BUN 32 mg/dL (7-18) H 05/02/17 04:50 Creatinine 1.79 mg/dL (0.70-1.30) H 05/02/17 04:50 Est GFR (MDRD) Af Amer 49 (>60) L 05/02/17 04:50 Est GFR (MDRD) Non-Af 40 (>60) L 05/02/17 04:50 Glucose 296 mg/dL (65-99) H 05/02/17 04:50 Calcium 7.6 mg/dL (8.5-10.1) L 05/02/17 04:50 Corrected Calcium 9.4 mg/dL (8.5-10.1) 05/02/17 04:50 Magnesium 1.3 mg/dL (1.7-2.9) L 05/02/17 04:50 Total Bilirubin 1.10 mg/dL (0.2-1.0) H 05/02/17 04:50 AST 115 Units/L (15-37) H 05/02/17 04:50 ALT 61 Units/L (12-78) 05/02/17 04:50 Alkaline Phosphatase 247 Units/L (46-116) H 05/02/17 04:50 Creatine Kinase 165 Units/L (39-308) 05/02/17 04:40 CK-MB (CK-2) 1.6 ng/mL (0-4.0) 05/02/17 04:40 CK/CKMB % Calc 1.0 % (<4) 05/02/17 04:40 Troponin I 0.04 ng/mL (0-1.5) 05/02/17 04:40 B-Natriuretic Peptide 533 pg/mL (0-79) H* 05/01/17 17:23 Total Protein 6.6 g/dL (6.4-8.2) 05/02/17 04:50 Albumin 1.7 g/dL (3.4-5.0) L 05/02/17 04:50 Globulin 4.9 g/dL (2.5-4.5) H 05/02/17 04:50 Albumin/Globulin Ratio 0.3 Ratio (1.1-2.1) L 05/02/17 04:50 Specimen Type Clean catch urine 05/01/17 18:50 Urine Color Yellow (YELLOW) 05/01/17 18:50 Urine Appearance Clear (CLEAR) 05/01/17 18:50 Urine pH 5.0 (5.0 - 8.0) 05/01/17 18:50 Ur Specific [place] 1.010 (1.000-1.030) 05/01/17 18:50 Urine Protein Negative (NEGATIVE) 05/01/17 18:50 Urine Glucose (UA) 1+ (NEGATIVE) 05/01/17 18:50 Urine Ketones Negative (NEGATIVE) 05/01/17 18:50 Urine Occult Blood 2+ (NEGATIVE) 05/01/17 18:50 Urine Nitrite Negative (NEGATIVE) 05/01/17 18:50 Urine Bilirubin Negative (NEGATIVE) 05/01/17 18:50 Urine Urobilinogen 1+ (NORMAL) 05/01/17 18:50 Ur Leukocyte Esterase Negative (NEGATIVE) 05/01/17 18:50 Urine RBC 0-2 /HPF (NEGATIVE) 05/01/17 18:50 Urine WBC 0-2 /HPF (NEGATIVE) 05/01/17 18:50 Ur Squamous Epith Cells Negative /HPF (NEGATIVE) 05/01/17 18:50 Urine Bacteria Negative /HPF (NEGATIVE) 05/01/17 18:50 Ur Culture Indicated? No/not indicated 05/01/17 18:50 - Plan (1) Cellulitis Status: Acute Qualifiers: Site of cellulitis: extremity Site of cellulitis of extremity: lower extremity Site of cellulitis of trunk: S Laterality: left Qualified Code(s ): L03.116 - Cellulitis of left lower limb Plan: cleocin 600mg IV Q8hr (2) Pulmonary congestion Status: Acute Plan: lasix 40mg IV BID (3) CHF (congestive heart failure) Status: Chronic Qualifiers: Congestive heart failure type: combined Congestive heart failure chronicity : acute on chronic Qualified Code(s): I50.43 - Acute on chronic combined systolic (congestive) and diastolic (congestive) heart failure Plan: lasix 40mg IV BID (4) Diabetes mellitus Status: Chronic Qualifiers: Diabetes mellitus type: D Diabetes mellitus complication status: D Diabetes mellitus complication detail: D Diabetic retinopathy severity: D Proliferative retinopathy type: P Diabetes mellitus macular edema: D Diabetes mellitus intermediate teacher insulin use: D Laterality: L Chronic kidney disease stage: C Plan: OTBS ACHS regular insulin SSC (5) Hypertension Status: Acute Qualifiers: Hypertension type: H Plan: hydralazine 50mg TID, Coreg 25mg daily (6) BPH (benign prostatic hypertrophy) Status: Chronic Plan: Flomax 0.4mg daily (7) Neuropathic pain Status: Chronic Plan: gabapentin 300mg TID
[2017-05-02] MEDS ORDERED: MAGNESIUM SULFATE 1 GM/100 mL PREMIX 1 GM/100 ML BAG IV ONE ×2 (18:23→20:00)
[2017-05-02] MEDS: ALBUMIN HUMAN 25%- 100ML 100 ML IV SCH (18:27)
[2017-05-02] MEDS: MAGNESIUM SULFATE 1 GM/100 mL PREMIX 1 GM/100 ML BAG IV SCH ×2 (18:27→20:05)
[2017-05-02] MEDS: SNACK - Diabetic Appropriate PO SCH (20:05)
[2017-05-02] MEDS: LANTUS SC SCH (20:06)
[2017-05-02] MEDS: NS 1000 ML 1,000 ML IV SCH (21:15)
[2017-05-02] MEDS: MORPHINE SULFATE INJ 4 MG IVP PRN (22:18)
[2017-05-03 04:40] LABS: BASOPHILS % (AUTO) 0.4 % (0.2-1.0); EOSINOPHILS # (AUTO) 0.1 x10^3/uL (0.0-0.2); HEMATOCRIT 30.9 % (42.0-54.0); HEMOGLOBIN 10.7 g/dL (13.5-18.0); LYMPHOCYTES # (AUTO) 1.2 X10^3/uL (1.3-2.9); LYMPHOCYTES % (AUTO) 26.6 % (21.0-51.0); MEAN CORPUSCULAR HEMOGLOBIN 35.8 pg (27.0-34.0); MEAN CORPUSCULAR HGB CONC 34.5 g/dL (33.0-35.0); MEAN CORPUSCULAR VOLUME 103.9 fL (80.0-100.0); MONOCYTES # (AUTO) 0.5 x10^3/uL (0.3-0.8); MONOCYTES % (AUTO) 10.8 % (0.0-13.0); NEUTROPHILS # (AUTO) 2.8 x10^3/uL (2.2-4.8); NEUTROPHILS % (AUTO) 60.2 % (42.0-75.0); PLATELET COUNT 60 X10^3/uL (150.0-450.0); RED BLOOD COUNT 2.98 X10^6/uL (4.7-6.0); RED CELL DISTRIBUTION WIDTH 14.5 % (11.6-16.5); WHITE BLOOD COUNT 4.6 X10^3/uL (3.6-10.0)
[2017-05-03 04:52] LABS: ALBUMIN 2.1 g/dL (3.4-5.0); CALCIUM 7.9 mg/dL (8.5-10.1); CARBON DIOXIDE 29.7 mmol/L (21-32); COR CA(FOR HYPOALB) 9.4 mg/dL (8.5-10.1); CREATININE 1.72 mg/dL (0.70-1.30)
[2017-05-03] MEDS: HumuLIN R SUBCUT PRN ×4 (05:31→20:52)
[2017-05-03] MEDS: FORTAZ or TAZICEF INJ 1 GM in NS 50 ML IV + SPIKE MINIBAG* 50 ML IV SCH ×3 (05:31→20:50)
[2017-05-03] MEDS: APRESOLINE TAB 25 MG PO SCH ×3 (05:31→21:00)
[2017-05-03] MEDS: NEURONTIN CAP 300 MG PO SCH ×3 (05:31→21:00)
--- NOTE | 2017-05-03 09:50 | PCM.PROG ---
Progress Note - Progress Note for Day of Date: 05/03/17 - Subjective Subjective: Patient states he is feeling better this am and his leg is not hurting near as bad as it was before. Pateint is still noted to have bilateral lower extremity edema with the left worse than the right. We are going to continue him on his current treat. Vital signs this am are 98.0, 61, 15, 99% 127 /57.Labs within normal limits with the exception of RBC 2.98, Hgb 10.7, Hct 30.9 , MCV 103.9, MCH 35.8, Plt Count 60, Lymph# 1.2, BUN 34, Creatinine 1.72, Est GFR 42, Glucose 239, Calcium 7.9, Total Bilirubin 1.40, AST 110, Alkaline Phosphatase 202, Albumin 2.1, Globulin 4.9, Albumin/globulin Ratio 0.4. We will continue his IV Albumin daily for hypoalbuminemia. We are still awaiting 3 phase bone scan and ECHO which should be completed today. Magnesium has come up to 1.7 this am from 1.3. We will follow up with patient in the am with repeat labs. - Past Medical Family Social History Past Med/Fam/Surg Hx: No changes since H&P Allergies: Allergies haloperidol [From Haldol] Allergy (Mild, Verified 05/02/17 17:49) acetaminophen Allergy (Unknown, Verified 05/02/17 17:50) LIVER amitriptyline Allergy (Verified 05/02/17 17:51) Pork/Porcine Containing Products Adverse Reaction (Verified 05/02/17 17:51) - Review of Systems ROS: No change since H&P - Vital Signs and I&O's Vital Signs: 98.0, 61, 15, 99% 127/57 Intake and Output: Intake & Output 04/30/17 05/01/17 05/02/17 05/03/17 11:59 11:59 11:59 11:59 Intake Total 817 2219 Output Total 1700 2350 Balance -883 -131 - Physical Exam Oriented: Normal Eyes: Normal Ear: Normal Nose: Normal Throat: Normal Respiratory: Normal Cardiovascular: Edema (lower extremity bilateral) : Normal Auscultation: Bowel Sounds: Normal Tenderness: Normal Skin: Normal Musculoskeletal: Swelling (lower extremity) Psychiatric: Normal Mood Description: Calm, Appropriate Affect: Normal Speech Pattern: Clear - Laboratory and Diagnostics Result Diagrams: 05/03/17 04:00 05/03/17 04:00 Labs: Laboratory WBC 4.6 X10^3/uL (3.6-10.0) 05/03/17 04:00 RBC 2.98 X10^6/uL (4.7-6.0) L 05/03/17 04:00 Hgb 10.7 g/dL (13.5-18.0) L 05/03/17 04:00 Hct 30.9 % (42.0-54.0) L 05/03/17 04:00 MCV 103.9 fL (80.0-100.0) H 05/03/17 04:00 MCH 35.8 pg (27.0-34.0) H 05/03/17 04:00 MCHC 34.5 g/dL (33.0-35.0) 05/03/17 04:00 RDW 14.5 % (11.6-16.5) 05/03/17 04:00 Plt Count 60 X10^3/uL (150.0-450.0) L 05/03/17 04:00 Plt Count Comment Decreased (ADEQUATE) 05/01/17 17:23 MPV 10.0 fL (7.4-11.0) 05/03/17 04:00 Neut % 60.2 % (42.0-75.0) 05/03/17 04:00 Lymph % 26.6 % (21.0-51.0) 05/03/17 04:00 [place] % 10.8 % (0.0-13.0) 05/03/17 04:00 Eos % 2.0 % (0.9-2.9) 05/03/17 04:00 Baso % 0.4 % (0.2-1.0) 05/03/17 04:00 Neut # 2.8 x10^3/uL (2.2-4.8) 05/03/17 04:00 Lymph # 1.2 X10^3/uL (1.3-2.9) L 05/03/17 04:00 [place] # 0.5 x10^3/uL (0.3-0.8) 05/03/17 04:00 Eos # 0.1 x10^3/uL (0.0-0.2) 05/03/17 04:00 Baso # 0.0 X10^3/uL (0.0-0.1) 05/03/17 04:00 Absolute Nucleated RBC 0.2 /100WBC 05/03/17 04:00 Plt Morphology Comment Normal (NORMAL) 05/01/17 17:23 RBC Morphology Abnormal (NORMAL) 05/01/17 17:23 Hypochromasia Slight A 05/01/17 17:23 Anisocytosis Slight A 05/01/17 17:23 Microcytosis Slight A 05/01/17 17:23 Macrocytosis Slight A 05/01/17 17:23 INR Target Range - 05/02/17 04:50 INR 1.40 (0.8-1.3) H 05/02/17 04:50 PTT 35.2 SECONDS (22.9-36.5) 05/02/17 04:50 PTT Comment - 05/02/17 04:50 Sodium 137 mmol/L (136-145) 05/03/17 04:00 Corrected Sodium 140 mmol/L (136-145) 05/03/17 04:00 Potassium 4.0 mmol/L (3.5-5.1) 05/03/17 04:00 Chloride 103 mmol/L (98-107) 05/03/17 04:00 Carbon Dioxide 29.7 mmol/L (21-32) 05/03/17 04:00 BUN 34 mg/dL (7-18) H 05/03/17 04:00 Creatinine 1.72 mg/dL (0.70-1.30) H 05/03/17 04:00 Est GFR (MDRD) Af Amer 51 (>60) L 05/03/17 04:00 Est GFR (MDRD) Non-Af 42 (>60) L 05/03/17 04:00 Glucose 239 mg/dL (65-99) H 05/03/17 04:00 Calcium 7.9 mg/dL (8.5-10.1) L 05/03/17 04:00 Corrected Calcium 9.4 mg/dL (8.5-10.1) 05/03/17 04:00 Magnesium 1.7 mg/dL (1.7-2.9) 05/03/17 04:00 Total Bilirubin 1.40 mg/dL (0.2-1.0) H 05/03/17 04:00 AST 110 Units/L (15-37) H 05/03/17 04:00 ALT 61 Units/L (12-78) 05/03/17 04:00 Alkaline Phosphatase 202 Units/L (46-116) H 05/03/17 04:00 Creatine Kinase 165 Units/L (39-308) 05/02/17 04:40 CK-MB (CK-2) 1.6 ng/mL (0-4.0) 05/02/17 04:40 CK/CKMB % Calc 1.0 % (<4) 05/02/17 04:40 Troponin I 0.04 ng/mL (0-1.5) 05/02/17 04:40 B-Natriuretic Peptide 533 pg/mL (0-79) H* 05/01/17 17:23 Total Protein 7.0 g/dL (6.4-8.2) 05/03/17 04:00 Albumin 2.1 g/dL (3.4-5.0) L 05/03/17 04:00 Globulin 4.9 g/dL (2.5-4.5) H 05/03/17 04:00 Albumin/Globulin Ratio 0.4 Ratio (1.1-2.1) L 05/03/17 04:00 Specimen Type Clean catch urine 05/01/17 18:50 Urine Color Yellow (YELLOW) 05/01/17 18:50 Urine Appearance Clear (CLEAR) 05/01/17 18:50 Urine pH 5.0 (5.0 - 8.0) 05/01/17 18:50 Ur Specific [place] 1.010 (1.000-1.030) 05/01/17 18:50 Urine Protein Negative (NEGATIVE) 05/01/17 18:50 Urine Glucose (UA) 1+ (NEGATIVE) 05/01/17 18:50 Urine Ketones Negative (NEGATIVE) 05/01/17 18:50 Urine Occult Blood 2+ (NEGATIVE) 05/01/17 18:50 Urine Nitrite Negative (NEGATIVE) 05/01/17 18:50 Urine Bilirubin Negative (NEGATIVE) 05/01/17 18:50 Urine Urobilinogen 1+ (NORMAL) 05/01/17 18:50 Ur Leukocyte Esterase Negative (NEGATIVE) 05/01/17 18:50 Urine RBC 0-2 /HPF (NEGATIVE) 05/01/17 18:50 Urine WBC 0-2 /HPF (NEGATIVE) 05/01/17 18:50 Ur Squamous Epith Cells Negative /HPF (NEGATIVE) 05/01/17 18:50 Urine Bacteria Negative /HPF (NEGATIVE) 05/01/17 18:50 Ur Culture Indicated? No/not indicated 05/01/17 18:50 - Plan (1) Cellulitis Status: Acute Qualifiers: Site of cellulitis: extremity Site of cellulitis of extremity: lower extremity Site of cellulitis of trunk: S Laterality: left Qualified Code(s ): L03.116 - Cellulitis of left lower limb Plan: cleocin 600mg IV Q8hr (2) Pulmonary congestion Status: Acute Plan: lasix 40mg IV BID (3) CHF (congestive heart failure) Status: Chronic Qualifiers: Congestive heart failure type: combined Congestive heart failure chronicity : acute on chronic Qualified Code(s): I50.43 - Acute on chronic combined systolic (congestive) and diastolic (congestive) heart failure Plan: lasix 40mg IV BID (4) Diabetes mellitus Status: Chronic Qualifiers: Diabetes mellitus type: D Diabetes mellitus complication status: D Diabetes mellitus complication detail: D Diabetic retinopathy severity: D Proliferative retinopathy type: P Diabetes mellitus macular edema: D Diabetes mellitus continuous churn buttermaker insulin use: D Laterality: L Chronic kidney disease stage: C Plan: OTBS ACHS regular insulin SSC (5) Hypertension Status: Acute Qualifiers: Hypertension type: H Plan: hydralazine 50mg TID, Coreg 25mg daily (6) BPH (benign prostatic hypertrophy) Status: Chronic Plan: Flomax 0.4mg daily (7) Neuropathic pain Status: Chronic Plan: gabapentin 300mg TID (8) Hypoalbuminemia Status: Acute Plan: albumin IV Daily
[2017-05-03] MEDS: VANCOMYCIN 1 GM PREMIX (ADDVANTAGE) 250 ML IV SCH ×2 (10:13→21:55)
[2017-05-03] MEDS: LASIX IVP SCH ×2 (10:13→20:49)
[2017-05-03] MEDS: VITAMIN C PO SCH (10:14)
[2017-05-03] MEDS: ALDACTONE TAB 25 MG PO SCH (10:14)
[2017-05-03] MEDS: FLOMAX PO SCH (10:14)
[2017-05-03] MEDS: ASPIRIN EC 81 MG PO SCH (10:14)
[2017-05-03] MEDS: COREG TAB 25 MG PO SCH (10:14)
[2017-05-03] MEDS: ZANTAC PO SCH (10:14)
[2017-05-03] MEDS: K-DUR TAB 20 MEQ PO SCH (10:15)
[2017-05-03] MEDS: ALBUMIN HUMAN 25%- 100ML 100 ML IV SCH (10:15)
--- NOTE | 2017-05-03 13:49 | NM ---
HISTORY: Left foot pain. Study: Nuclear medicine 3 phase bone scan Comparison: Left foot series dated May 02, 2017 and chest x-ray dated May 01, 2017. Technique: 3 phase bone scintigraphy was performed in the anterior and posterior projection after th e intravenous administration of 25.3 mCi of technetium labeled MDP. Findings: No 3 phase uptake to suggest osteomyelitis. Increased uptake in the bilateral feet, knees, tibias, s houlders, and back consistent with degenerative changes. Increased uptake along anterior medial righ t lower ribs, which may represent costochondritis or fracture. Otherwise physiologic distribution of radiotracer is observed throughout the appendicular and axial skeleton. Normal soft tissue uptake is noted to be present as well. Photopenic area over right upper chest wall consistent with known pa cemaker. IMPRESSION: 1. No 3 phase uptake to suggest osteomyelitis. 2. Other chronic findings as above. Reported By:
[2017-05-03] MEDS: LANTUS SC SCH (20:51)
[2017-05-03] MEDS: SNACK - Diabetic Appropriate PO SCH (20:52)
[2017-05-03] MEDS: NS 1000 ML 1,000 ML IV SCH (21:00)
[2017-05-03 21:16] LABS: CREATININE 1.62 mg/dL (0.70-1.30); VANCOMYCIN,TROUGH 16.9 ug/mL (15-20)
[2017-05-04] MEDS: MORPHINE SULFATE INJ 4 MG IVP PRN (00:35)
[2017-05-04 05:24] LABS: ALANINE AMINOTRANSFERASE 59 Units/L (12-78); ALBUMIN 2.2 g/dL (3.4-5.0); ALKALINE PHOSPHATASE 176 Units/L (46-116); ASPARTATE AMINO TRANSFERASE 112 Units/L (15-37); BLOOD UREA NITROGEN 32 mg/dL (7-18); CALCIUM 8.1 mg/dL (8.5-10.1); CARBON DIOXIDE 29.1 mmol/L (21-32); CHLORIDE 103 mmol/L (98-107); COR CA(FOR HYPOALB) 9.5 mg/dL (8.5-10.1); COR NA(FOR HYPERGLY) 137 mmol/L (136-145); CREATININE 1.43 mg/dL (0.70-1.30); GLUCOSE 117 mg/dL (65-99); MAGNESIUM 1.5 mg/dL (1.7-2.9); SODIUM 137 mmol/L (136-145); TOTAL PROTEIN 7.1 g/dL (6.4-8.2); eGFR BLACK RACES > 60 (>60); eGFR NON BLACK RACES 52 (>60)
[2017-05-04] MEDS: NEURONTIN CAP 300 MG PO SCH ×2 (05:33→14:18)
[2017-05-04] MEDS: APRESOLINE TAB 25 MG PO SCH ×2 (05:33→14:18)
[2017-05-04 05:42] LABS: BASOPHILS # (AUTO) 0.1 X10^3/uL (0.0-0.1); BASOPHILS % (AUTO) 1.1 % (0.2-1.0); EOSINOPHILS # (AUTO) 0.1 x10^3/uL (0.0-0.2); EOSINOPHILS % (AUTO) 1.8 % (0.9-2.9); HEMATOCRIT 30.7 % (42.0-54.0); HEMOGLOBIN 10.7 g/dL (13.5-18.0); LYMPHOCYTES # (AUTO) 1.4 X10^3/uL (1.3-2.9); LYMPHOCYTES % (AUTO) 24.9 % (21.0-51.0); MEAN CORPUSCULAR HEMOGLOBIN 35.9 pg (27.0-34.0); MEAN CORPUSCULAR HGB CONC 34.7 g/dL (33.0-35.0); MEAN CORPUSCULAR VOLUME 103.5 fL (80.0-100.0); MEAN PLATELET VOLUME 9.8 fL (7.4-11.0); MONOCYTES # (AUTO) 0.6 x10^3/uL (0.3-0.8); MONOCYTES % (AUTO) 10.2 % (0.0-13.0); NEUTROPHILS # (AUTO) 3.5 x10^3/uL (2.2-4.8); PLATELET COUNT 66 X10^3/uL (150.0-450.0); RED BLOOD COUNT 2.97 X10^6/uL (4.7-6.0); RED CELL DISTRIBUTION WIDTH 14.5 % (11.6-16.5); WHITE BLOOD COUNT 5.7 X10^3/uL (3.6-10.0)
[2017-05-04 06:31] LABS: ERYTHROCYTE SEDIMENTATION RATE 33 MM/HOUR (0-15)
[2017-05-04] MEDS: FORTAZ or TAZICEF INJ 1 GM in NS 50 ML IV + SPIKE MINIBAG* 50 ML IV SCH (09:07)
[2017-05-04] MEDS: LASIX IVP SCH (09:08)
[2017-05-04] MEDS: ALBUMIN HUMAN 25%- 100ML 100 ML IV SCH (09:08)
[2017-05-04] MEDS: VANCOMYCIN 1 GM PREMIX (ADDVANTAGE) 250 ML IV SCH (09:08)
[2017-05-04] MEDS: ZANTAC PO SCH (09:10)
[2017-05-04] MEDS: ALDACTONE TAB 25 MG PO SCH (09:10)
[2017-05-04] MEDS: VITAMIN C PO SCH (09:10)
[2017-05-04] MEDS: FLOMAX PO SCH (09:11)
[2017-05-04] MEDS: COREG TAB 25 MG PO SCH (09:11)
[2017-05-04] MEDS: ASPIRIN EC 81 MG PO SCH (09:11)
[2017-05-04] MEDS: K-DUR TAB 20 MEQ PO SCH (09:11)
--- NOTE | 2017-05-04 11:53 | VAS ---
HISTORY: Left upper extremity pain Study: Left upper extremity venous Doppler evaluation Comparison: None Technique: Multiple grayscale sonographic images were obtained . Color duplex Doppler evaluation was performed. Findings: The left tubular vein, subclavian vein, axillary vein, brachial vein, are patent. There is no eviden ce for deep venous thrombosis left upper extremity IMPRESSION: Exam negative for deep venous thrombosis left upper extremity Reported By:
[2017-05-04 13:38] VITALS: BP 147/65
--- NOTE | 2017-05-04 20:07 | DR.CARTERD ---
- Discharge Summary for: Discharge Summary for Date of:: 05/04/17 - Admission Date Date of Admission: 05/01/17 - Admission Diagnoses Admission Diagnosis: CHF. Pulmonary congestion. Left foot pain/cellulitis - Discharge Date Discharge Date: 05/04/17 - Discharge Diagnoses Discharge Diagnosis: CHF Pulmonary congestion Left foot pain/cellulitis Hypertension Hypokalemia Hypomagnesemia - Hospital Course Hospital Course: Patient is a 66yo male who presented to the emergency room with complaint of left foot pain, lower extremity edema and increasing shortness of breath for the past several days. Patient also complained of left arm pain and decreased strength. Patient has a history of coronary artery disease, Diabetes Mellitus typ2, Gout, Hypertension, pacemaker/defibrillator. Patient admitted with diagnosis of Labs on arrival within normal limits with the exception of RBC 3.16 , Hgb 11.4, Hct 32.7, MCV 103.7, MCH 36.0, Plt count 47, MPV 11.6, Hypochromasia Slight A, Anisocytosis slight a, microcytosis slight a, macrocytosis slight a, BUN 33, Creatinine 1.87, Est GFR 38, Total bilirubin 1.50 , AST 131, Alkaline phosphatase 247, BNP 533, Albumin 1.9, Globulin 5.3, Albumin /globulin ratio 0.4. Foot xray remodeling of the 5th toe proximal phalanx chronic, irregularity of the great toe, diffuse soft tissue swelling without displaced fracture, mild degenerative changes. Chest Xray cardiomegaly and pulmonary vascular congestion which is similar in appearance to prior exam. EKG shows ventricular paced rate of 70. Patient admitted started on NS@20ml/hr, Cleocin IV, Lasix 40mg IV BID. Cleocin was discontinued and started on vancomycin and fortaz. home medications were continue with the exception of Lasix. A 3 phase bone scan which showed no 3 phase uptake to suggest ostseomyrlitis, degenerative changes in the bilateral feet, knee, tibias, shoulders and back. ECHO showed a 58% ejection fracture. This am patient states he is feeling much better there is still noted to have a small amount of lower extremity but is much improved. Patient complained of right arm pain a venous Doppler was performed which was negative for a DVT. Vital signs this am 97.9, 70 , 25, 99%, 147/65. Labs are within normal limits with the exception of RBC 2.97 , Hgb 10.7, hct 30.7, MCV 103.5, MCH 35.9, Plt count 66, Baso% 1.1, ESR 33, BUN 32, Creatinine 1.43, Glucose 117, Calcium 8.1, Magnesium 1.5, Total bilirubin 1.40, AST 112, Alkaline phosphatase 176, CRP 10.90, Albumin 2.2, globulin 4.9, Albumin/globulin ratio 0.4. We are going to discharge patient in stable condition to follow up in 1 week he is to continue his home medications with the addition of Bactrim DS BID for 2 weeks. Labs: RBC 2.97, Hgb 10.7, hct 30.7, MCV 103.5, MCH 35.9, Plt count 66, Baso% 1.1, ESR 33, BUN 32, Creatinine 1.43, Glucose 117, Calcium 8.1, Magnesium 1.5, Total bilirubin 1.40, AST 112, Alkaline phosphatase 176, CRP 10.90, Albumin 2.2, globulin 4.9, Albumin/globulin ratio 0.4 - Discharge Medications Discharge Medications: Ascorbic Acid [Vitamin C] 1,000 mg PO DAILY 05/02/17 [History] Aspirin EC [ASPIRIN EC 81 MG *] 81 mg PO DAILY 05/02/17 [History] Carvedilol [COREG TAB 25 MG *] 25 mg PO DAILY 05/02/17 [History] Furosemide 80 mg PO BID 05/02/17 [History] Gabapentin 300 mg PO TID 05/02/17 [History] Hydralazine HCl [Hydralazine HCl 50 mg] 50 mg PO TID 05/02/17 [History] Insulin Aspart [NovoLog insulin 10 mL vial] 8 unit SC TIDWM 05/02/17 [History] Insulin Glargine (Lantus) [LANTUS INSULIN 10 ML VIAL *] 35 units SC HS 05/02/17 [History] Nitroglycerin Sublingual [NITROSTAT SUBLING TAB 0.4 MG *] 0.4 mg SL PRN PRN [History] Potassium Chloride [K-DUR TAB 20 mEq *] 20 meq PO DAILY 05/02/17 [History] Ranitidine HCl 150 mg PO DAILY 05/02/17 [History] Spironolactone 25 mg PO DAILY 05/02/17 [History] Tamsulosin HCl [FLOMAX (GENERIC) 0.4 MG *] 0.4 mg PO DAILY 05/02/17 [History] Sulfamethoxazole-Trimethoprim [BACTRIM DS TAB 800/160 MG *] 1 tab PO BID #28 tab 05/04/17 [Rx] - Discharge Disposition Discharge Disposition: Home [facility] 1 week follow up
== END 2017-05-04 15:35 | disposition home or self-care (01) | DRG 602 ==
LOC: ER 16:39 → OBSVTOIN 21:18 → ICU 21:18
PROVIDERS: ADMIT Internal Medicine; ATTEND Internal Medicine
DX: L03.116 Cellulitis of left lower limb (principal); I50.43 Acute on chronic combined systolic (congestive) and diastolic (congestive) heart failure; R09.89 Other specified symptoms and signs involving the circulatory and respiratory systems; M79.672 Pain in left foot; M79.602 Pain in left arm; R60.0 Localized edema; I25.10 Atherosclerotic heart disease of native coronary artery without angina pectoris; I10 Essential (primary) hypertension; E11.65 Type 2 diabetes mellitus with hyperglycemia; Z95.0 Presence of cardiac pacemaker; R94.31 Abnormal electrocardiogram [ECG] [EKG]; Z79.4 Long term (current) use of insulin; N40.0 Benign prostatic hyperplasia without lower urinary tract symptoms; E88.09 Other disorders of plasma-protein metabolism, not elsewhere classified; E83.42 Hypomagnesemia; R79.1 Abnormal coagulation profile
CPT/HCPCS: 36415; 71010; 73630; 78315; 80053; 80202; 81001; 82550; 82553; 82565; 83735; 83880; 84484; 85025; 85610; 85652; 85730; 86140; 93005; 93306; 93971; 96365; 96374; 99284; A4222; P9047; S0171; J0077; J0713; J1815; J1940; J2270; J3370

== ENCOUNTER 2018-11-21 15:12 | Observation (INO) ==
--- NOTE | 2018-11-21 15:40 | DR.AMS ---
HPI Time Seen Time Seen by Provider: 11/21/18 15:25 PCP Primary Care Physician: TAHIRA BEGUM Complaint Chief Complaint:: EMS OUT TO PT WITH , DIARREA PER HIS AND PT'S STATES HE HAS BEEN HAVING SOME [employer] EPISODES AND HE HAS NOT BEEN ACTING RIGHT AND WHEN ASKED QUESTIONS HE SAYS HIS NAME AND HE IS ABLE TO FLU COMMANDS ,[facility] History Provided: Patient and EMS Mode of Arrival Mode of Arrival: Stretcher Timing Onset of Chief Complaint: 11/21/18 PMH PMH Past Medical History: Yes Past Medical History: Coronary Artery Disease, Diabetes, Gout and Hypertension Past Surgical History: Yes Surgical History: Tonsillectomy and Other Family History History of Family Medical Conditions: Yes Family Medical History: Diabetes Mellitus, Cancer, [place] and Hypertension Social History Does patient currently use any type of tobacco product: No Have you used tobacco products in the last 12 months: No Type of Tobacco Use: None Does any household member use tobacco: No Alcohol Use: None Do you use any recreational Drugs:: No Lives With: Family Lives Where: Home infectious screening In the last 2 months have you had wt loss of >10#?: NO Have you had fever, night sweats or hemotysis?: No Have you traveled outside the country in the last 6 months?: No PE Vitals Vital Signs: Temp Pulse Resp BP BP BP Pulse Ox 11/21/18 15:17 98.1 F 64 20 182/102 99 07/16/18 14:00 160/70 07/16/18 12:26 160/70 05/04/17 12:00 147/65
[2018-11-21 15:52] LABS: BASOPHILS % (AUTO) 0.7 % (0.2-1.0); EOSINOPHILS # (AUTO) 0.1 x10^3/uL (0.0-0.2); HEMATOCRIT 37.8 % (42.0-54.0); HEMOGLOBIN 12.8 g/dL (13.5-18.0); LYMPHOCYTES # (AUTO) 0.9 X10^3/uL (1.3-2.9); LYMPHOCYTES % (AUTO) 16.4 % (21.0-51.0); MEAN CORPUSCULAR HEMOGLOBIN 34.6 pg (27.0-34.0); MEAN CORPUSCULAR HGB CONC 33.9 g/dL (33.0-35.0); MEAN PLATELET VOLUME 9.6 fL (7.4-11.0); MONOCYTES # (AUTO) 0.5 x10^3/uL (0.3-0.8); MONOCYTES % (AUTO) 8.4 % (0.0-13.0); NEUTROPHILS % (AUTO) 72.5 % (42.0-75.0); PLATELET COUNT 93 X10^3/uL (150.0-450.0); RED CELL DISTRIBUTION WIDTH 13.8 % (11.6-16.5); WHITE BLOOD COUNT 5.5 X10^3/uL (3.6-10.0)
[2018-11-21 16:25] LABS: LACTIC ACID 1.7 mmol/L (0.4-2.0)
[2018-11-21 16:26] LABS: ALBUMIN 2.2 g/dL (3.4-5.0); CARBON DIOXIDE 28.4 mmol/L (21-32); CKMB % 1.8 % (<4); COR CA(FOR HYPOALB) 10.4 mg/dL (8.5-10.1); CREATINE KINASE MB 2.5 ng/mL (0-4.0); CREATININE 1.69 mg/dL (0.70-1.30); TOTAL PROTEIN 8.1 g/dL (6.4-8.2); TROPONIN I 0.03 ng/mL (0-1.5)
--- NOTE | 2018-11-21 16:45 | CT ---
HISTORY: Altered mental status Study: CT HEAD WITHOUT CONTRAST Comparison: 01/18/2017 Technique: Multiple axial images of the brain were obtained from the skull base to the vertex without administration of IV contrast. Findings: The exam is mildly degraded by motion artifact. Multiple attempts were made to scan the patient without motion but each sequence contain some degree of motion artifact. Within limitations of the study, there is no evidence of an acute intracranial hemorrhage. There is no extra-axial fluid collection, mass effect or midline shift. The ventricular size is normal. No obvious, large artery territorial infarct is identified. Calvarium is intact. Sinuses and mastoid air cells are clear. Mild cortical volume loss is noted. IMPRESSION: Within limitations of a motion degraded study, no acute abnormalities are demonstrated. Reported By:
--- NOTE | 2018-11-21 17:06 | RAD ---
Indication: Chest pain Exam: Portable chest Comparison: 05/01/2017 Findings: The heart is mildly enlarged. The pulmonary vessels are engorged centrally and more prominent. There is a right pacemaker in place which is unchanged. There are mild increased interstitial markings along the perihilar regions which have increased. No effusion or consolidation is seen. Impression: Stable cardiomegaly and mild pulmonary edema which is more apparent. Reported By:
--- NOTE | 2018-11-21 17:13 | DR.AMS ---
HPI Time Seen Time Seen by Provider: 11/21/18 15:25 PCP Primary Care Physician: TAHIRA BEGUM HPI Comment HPI Comment: 68YR OLD MALE WITH HISTORY OF HTN, DM, CAD, RENAL DISEASE, CHF AND CIRRHOSIS IS IN ED CONFUSE. HE IS BEING WEAK AND ATAXIC. NO FEVER. HAD DIARRHEA WELL. DID NOT TAKE HIS MEDS TODAY. [facility] THAT USES DR. HOFFMANN HIS LOCAL DOCTOR. Complaint Cheif Complaint Doctors Comments: AMS, WEAK, CONFUSE AND HAVING SYNCOPAL EPISODES. NOT WELL FOR FEW DAYS ACCORDING TO . Chief Complaint:: EMS OUT TO PT WITH , DIARREA PER HIS AND PT'S STATES HE HAS BEEN HAVING SOME SYNCOPE EPISODES AND HE HAS NOT BEEN ACTING RIGHT AND WHEN ASKED QUESTIONS HE SAYS HIS NAME AND HE IS ABLE TO FLU COMMANDS ,BR Reviewed Nurses Notes Reviewed: Yes Source History Provided: Patient and EMS Mode of Arrival Mode of Arrival: Stretcher Timing Onset of Chief Complaint: 11/21/18 Came On: Suddenly Symptoms: Worsening Duration Duration: Constant Duration: Days Severity Severity: Severe Context Recent: None History Of: Diabetes Associated Signs and Symptoms Associated Signs and Symptoms: Generalized Weakness, Change in Behavior, Confusion and Decreased Oral Intake PMH PMH Past Medical History: Yes Past Medical History: Coronary Artery Disease, Diabetes, Gout and Hypertension Past Surgical History: Yes Surgical History: Tonsillectomy and Other Family History History of Family Medical Conditions: Yes Family Medical History: Diabetes Mellitus, Cancer, [place] and Hypertension Social History Does patient currently use any type of tobacco product: No Have you used tobacco products in the last 12 months: No Type of Tobacco Use: None Does any household member use tobacco: No Alcohol Use: None Do you use any recreational Drugs:: No Lives With: Family Lives Where: Home infectious screening In the last 2 months have you had wt loss of >10#?: NO Have you had fever, night sweats or hemotysis?: No Have you traveled outside the country in the last 6 months?: No ROS Review of Systems Constitutional: Weakness and Fatigue Eyes: negative Eye Pain and Discharge ENTM: No Symptoms Reported Respiratoy: Short of Breath (ON EXERTION.) Cardiovascular: Edema Gastrointestinal/Abdominal: Diarrhea Genitourinary: No Symptoms Reported Neurological: Weakness and Problems Walking Musculoskeletal: No Symptoms Reported Integumentary: No Symptoms Reported Hematologic/Lymphatic: No Symptoms Reported Endocrine: No Symptoms Reported Psychiatric: No Symptoms Reported All Other Systems: Reviewed and Negative Unable to Obtain Due To: Altered mental status PE Vitals Vital Signs: Temp Pulse Resp BP BP BP Pulse Ox 11/21/18 15:17 98.1 F 64 20 182/102 99 07/16/18 14:00 160/70 07/16/18 12:26 160/70 05/04/17 12:00 147/65 General Limitations: Altered Mental Status General Appearance: Alert and In Distress (ONEXERTION.) Head Head Exam: Normal Inspection Head Exam Physical: Other (NONE.) Eyes Eye exam: PERRL and Scleral Icterus; negative Conjunctival Injection Pupils: Regular, Round: Bilateral ENT ENT Exam: Normal Exam External Ear Exam: Normal External Inspection TM/Canal Exam: Bilateral: Normal Nose Exam: Normal Nose Exam Mouth Exam: Normal Inspection Throat Exam: Normal Inspection Neck Neck Exam: Trachea Midline; negative Tenderness, Meningismus and Lymphadenopathy Chest Chest Inspection: Normal Inspection Respiratory Respiratory Exam: Normal Lung Sounds Bilat Respiratory Exam: Bilateral: Rhonchi and Lower: Rhonchi Cardiovascular Cardiovascular Exam: Regular Rate and Normal Rhythm Abdominal Exam Abdominal Exam: Normal Inspection, Normal Bowel Sounds and Soft; negative Tenderness Extremities Extremities Exam: Edema Back Back Exam: Normal Inspection Neurological Neurological Exam: Alert Patient Oriented To: Person; negative Place and Time Speech: Other (SPECH SLOW.) Cranial Nerve Exam: Gag reflex (XI): Normal Skin Skin Exam: Dry MDM Additional Information Obtained Additional Information Obtained From: Family Differential Diagnosis Metabolic: DKA, Hypercalcemia, Hypernatremia, Hypoglycemia and Hyponatremia Structural: CVA and Mass Lesion Infectious: Sepsis and UTI (HEPATIC ENCEPHALOPATHY) COURSE Treatment Treatment: SEE ORDERS. Consultation Consultation Comments: DISCUSS PATIENT WITH DR. HOFFMANN. HE WILL ADMIT PATIENT. Education/Counseling Education/Counseling: Family Educated On: Diagnosis ROR Labs Reviewed Laboratory Results Reviewed?: Yes Result Diagrams: 11/21/18 15:20 11/21/18 15:20 Laboratory: WBC 5.5 X10^3/uL (3.6-10.0) 11/21/18 15:20 RBC 3.70 X10^6/uL (4.7-6.0) L 11/21/18 15:20 Hgb 12.8 g/dL (13.5-18.0) L 11/21/18 15:20 Hct 37.8 % (42.0-54.0) L 11/21/18 15:20 MCV 102.0 fL (80.0-100.0) H 11/21/18 15:20 MCH 34.6 pg (27.0-34.0) H 11/21/18 15:20 MCHC 33.9 g/dL (33.0-35.0) 11/21/18 15:20 RDW 13.8 % (11.6-16.5) 11/21/18 15:20 Plt Count 93 X10^3/uL (150.0-450.0) L 11/21/18 15:20 MPV 9.6 fL (7.4-11.0) 11/21/18 15:20 Neut % (Auto) 72.5 % (42.0-75.0) 11/21/18 15:20 Lymph % (Auto) 16.4 % (21.0-51.0) L 11/21/18 15:20 Gem % (Auto) 8.4 % (0.0-13.0) 11/21/18 15:20 Eos % (Auto) 2.0 % (0.9-2.9) 11/21/18 15:20 Baso % (Auto) 0.7 % (0.2-1.0) 11/21/18 15:20 Neut # (Auto) 4.0 x10^3/uL (2.2-4.8) 11/21/18 15:20 Lymph # (Auto) 0.9 X10^3/uL (1.3-2.9) L 11/21/18 15:20 Gem # (Auto) 0.5 x10^3/uL (0.3-0.8) 11/21/18 15:20 Eos # (Auto) 0.1 x10^3/uL (0.0-0.2) 11/21/18 15:20 Baso # (Auto) 0.0 X10^3/uL (0.0-0.1) 11/21/18 15:20 Absolute Nucleated RBC 0.3 /100WBC 11/21/18 15:20 Sodium 138 mmol/L (136-145) 11/21/18 15:20 Corrected Sodium 140 mmol/L (136-145) 11/21/18 15:20 Potassium 4.6 mmol/L (3.5-5.1) 11/21/18 15:20 Chloride 102 mmol/L (98-107) 11/21/18 15:20 Carbon Dioxide 28.4 mmol/L (21-32) 11/21/18 15:20 BUN 36 mg/dL (7-18) H 11/21/18 15:20 Creatinine 1.69 mg/dL (0.70-1.30) H 11/21/18 15:20 Est GFR (MDRD) Af Amer 52 (>60) L 11/21/18 15:20 Est GFR (MDRD) Non-Af 43 (>60) L 11/21/18 15:20 Glucose 203 mg/dL (65-99) H 11/21/18 15:20 Lactic Acid 1.7 mmol/L (0.4-2.0) 11/21/18 15:20 Calcium 9.0 mg/dL (8.5-10.1) 11/21/18 15:20 Corrected Calcium 10.4 mg/dL (8.5-10.1) H 11/21/18 15:20 Magnesium 1.5 mg/dL (1.7-2.9) L 11/21/18 17:50 Total Bilirubin 1.20 mg/dL (0.2-1.0) H 11/21/18 15:20 AST 52 Units/L (15-37) H 11/21/18 15:20 ALT 24 Units/L (12-78) 11/21/18 15:20 Alkaline Phosphatase 203 Units/L (46-116) H 11/21/18 15:20 Ammonia 89 umol/L (11-32) H 11/21/18 17:50 Creatine Kinase 138 Units/L (39-308) 11/21/18 15:20 CK-MB (CK-2) 2.5 ng/mL (0-4.0) 11/21/18 15:20 CK/CKMB % Calc 1.8 % (<4) 11/21/18 15:20 Troponin I 0.03 ng/mL (0-1.5) 11/21/18 15:20 C-Reactive Protein 13.40 mg/L (0-3.0) H 11/21/18 15:20 Total Protein 8.1 g/dL (6.4-8.2) 11/21/18 15:20 Albumin 2.2 g/dL (3.4-5.0) L 11/21/18 15:20 Globulin 5.9 g/dL (2.5-4.5) H 11/21/18 15:20 Albumin/Globulin Ratio 0.4 Ratio (1.1-2.1) L 11/21/18 15:20 XRAY XRAY Interpreted by: Radiologist XRAY Findings: REPORT DISCUSS WITH PATIENTS . EKG Rhythm: Paced
[2018-11-21] MEDS ORDERED: NIFEDIPINE CAP 10 MG PO ONE (17:23)
[2018-11-21] MEDS ORDERED: NIFEDIPINE CAP 10 MG ONE (17:28)
[2018-11-21 18:06] LABS: MAGNESIUM 1.5 mg/dL (1.7-2.9)
[2018-11-21 18:28] LABS: BILIRUBIN,URINE NEGATIVE (NEGATIVE); BLOOD/HEMOGLOBIN,URINE 4+ (NEGATIVE); GLUCOSE, URINE NEGATIVE (NEGATIVE); KETONES,URINE NEGATIVE (NEGATIVE); LEUKOCYTE ESTERASE ,URINE NEGATIVE (NEGATIVE); NITRITES,URINE NEGATIVE (NEGATIVE); PROTEIN,URINE 3+ (NEGATIVE); UROBILINOGEN,URINE NORMAL (NORMAL)
[2018-11-21 18:40] LABS: AMORPHOUS SEDIMENT,UR 2+ /HPF (NEGATIVE); APPEARANCE,URINE SLIGHTLY HAZY (CLEAR); BACTERIA,URINE 1+ /HPF (NEGATIVE); COLOR,URINE YELLOW (YELLOW); SQUAMOUS EPITHELIAL CELL,UR RARE /HPF (NEGATIVE)
[2018-11-21] MEDS ORDERED: MICRO K EXTEN CAP 10 MEQ PO PRN (19:03)
[2018-11-21] MEDS ORDERED: POTASSIUM CHL 60 MEQ/NS 0.45% 500 ML IV PRN (19:03)
[2018-11-21] MEDS ORDERED: K-RIDER 10 MEQ/NS 100 ML 10 MEQ/100 ML BAG IV PRN (19:03)
[2018-11-21] MEDS ORDERED: POTASSIUM CHLORIDE LIQ 20 MEQ UDC PO PRN (19:03)
[2018-11-21] MEDS ORDERED: POTASSIUM CHL 40 MEQ/NS 0.45% 500 ML IV PRN (19:03)
[2018-11-21] MEDS ORDERED: K-DUR TAB 20 MEQ PO PRN (19:03)
[2018-11-21] MEDS ORDERED: KLOR-CON PO PRN (19:03)
[2018-11-21] MEDS ORDERED: ALDACTONE TAB 25 MG PO SCH (19:18)
[2018-11-21] MEDS: NS 1000 ML 1,000 ML IV SCH (19:24)
[2018-11-21] MEDS: MAGNESIUM SULFATE 1 GRAM/100 mL PREMIX 1 GM/100 ML BAG IV PRN ×2 (19:41→20:48)
[2018-11-21] MEDS: LASIX IVP SCH (20:48)
[2018-11-21] MEDS: XIFAXAN PO SCH (21:30)
[2018-11-21] MEDS: FLOMAX PO SCH (21:30)
[2018-11-21] MEDS: LOTRIMIN CREAM TOP SCH (21:31)
[2018-11-21] MEDS: K-DUR TAB 20 MEQ PO SCH ×2 (21:31→22:07)
[2018-11-21] MEDS: ASPIRIN EC 81 MG PO SCH (21:31)
[2018-11-21] MEDS: PATIENT'S HOME MEDICATION (Ferrous Sulfate [Ferrous Sulfate] 325 MG) PO SCH (22:06)
[2018-11-21] MEDS: NEURONTIN CAP 100 MG PO SCH (22:06)
[2018-11-22] MEDS: LOTRIMIN CREAM TOP SCH ×3 (00:10→21:15)
[2018-11-22 00:50] LABS: CKMB % 2.1 % (<4); CREATINE KINASE MB 2.2 ng/mL (0-4.0); TROPONIN I 0.05 ng/mL (0-1.5)
[2018-11-22] MEDS: PATIENT'S HOME MEDICATION (Ferrous Sulfate [Ferrous Sulfate] 325 MG) PO SCH (05:12)
[2018-11-22] MEDS: NEURONTIN CAP 100 MG PO SCH ×4 (05:12→21:14)
[2018-11-22 05:55] VITALS: BMI 29.2
[2018-11-22 06:49] LABS: BASOPHILS % (AUTO) 0.4 % (0.2-1.0); EOSINOPHILS # (AUTO) 0.2 x10^3/uL (0.0-0.2); EOSINOPHILS % (AUTO) 2.9 % (0.9-2.9); HEMATOCRIT 34.6 % (42.0-54.0); HEMOGLOBIN 11.9 g/dL (13.5-18.0); LYMPHOCYTES % (AUTO) 15.7 % (21.0-51.0); MEAN CORPUSCULAR HGB CONC 34.4 g/dL (33.0-35.0); MEAN CORPUSCULAR VOLUME 101.8 fL (80.0-100.0); MEAN PLATELET VOLUME 9.9 fL (7.4-11.0); MONOCYTES # (AUTO) 0.5 x10^3/uL (0.3-0.8); MONOCYTES % (AUTO) 7.8 % (0.0-13.0); NEUTROPHILS # (AUTO) 4.8 x10^3/uL (2.2-4.8); NEUTROPHILS % (AUTO) 73.2 % (42.0-75.0); PLATELET COUNT 86 X10^3/uL (150.0-450.0); RED CELL DISTRIBUTION WIDTH 13.8 % (11.6-16.5); WHITE BLOOD COUNT 6.6 X10^3/uL (3.6-10.0)
--- NOTE | 2018-11-22 06:57 | RAD ---
HISTORY: Shortness of breath Study: Chest AP portable Comparison: 11/21/2018 Findings: There is a pacemaker present on the right. The heart is enlarged. Mild pulmonary venous congestion is present. No interstitial edema, alveolar edema, or alveolar infiltrates are identified. No pleural effusions are present. The bony thorax is unremarkable. IMPRESSION: Cardiomegaly with improving mild congestive heart failure No acute infiltrates Reported By:
[2018-11-22 07:00] LABS: CALCIUM 8.9 mg/dL (8.5-10.1); CARBON DIOXIDE 26.3 mmol/L (21-32); CHOL/HDL RATIO 5.5 (0.0-5.0); COR CA(FOR HYPOALB) 10.5 mg/dL (8.5-10.1); CREATININE 1.62 mg/dL (0.70-1.30); TOTAL PROTEIN 7.2 g/dL (6.4-8.2)
[2018-11-22 07:32] LABS: CKMB % 2.1 % (<4); CREATINE KINASE MB 1.7 ng/mL (0-4.0); TROPONIN I 0.03 ng/mL (0-1.5)
[2018-11-22] MEDS: FLOMAX PO SCH (08:35)
[2018-11-22] MEDS: LASIX IVP SCH ×2 (08:35→20:19)
[2018-11-22] MEDS: K-DUR TAB 20 MEQ PO SCH (08:35)
[2018-11-22] MEDS: ALDACTONE TAB 25 MG PO SCH (08:35)
[2018-11-22] MEDS: ASPIRIN EC 81 MG PO SCH (08:35)
[2018-11-22] MEDS: COREG TAB 25 MG PO SCH ×2 (08:35→20:19)
[2018-11-22] MEDS: XIFAXAN PO SCH ×2 (08:35→20:20)
--- NOTE | 2018-11-22 11:44 | CT ---
HISTORY: Lower back and bilateral leg pain. Study: CT lumbar spine without contrast Comparison: CT abdomen/pelvis dated April 29, 2014. Technique: Multiple axial images of the lumbar spine were obtained from the thoracolumbar junction to the sacrum without the administration of IV contrast. Sagittal and coronal reformats were performed and reviewed. Dose reduction techniques including Automated Exposure Control (AEC) and adjustment of mA and kV were utilized. Findings: Five nonrib bearing lumbar vertebra. No acute fracture or listhesis. Multilevel Schmorl's nodes with associated endplate sclerosis and disc osteophyte complexes. This is worse at L4-L5. Multilevel facet arthrosis. Multilevel broad-based disc bulges with associated moderate to severe facet/ligamentum flavum hypertrophy. This is worse at L4-L5 with associated moderate bilateral neural foraminal narrowing and spinal canal stenosis to 7 mm. Leonard catheter is seen within the bladder lumen. Vascular calcifications without evidence of aneurysmal dilatation. Remaining visualized soft tissue structures are unremarkable in their noncontrast appearance. IMPRESSION: Chronic findings as above. Reported By:
--- NOTE | 2018-11-22 12:48 | VAS ---
ARTERIAL DOPPLER EVALUATION OF THE LOWER EXTREMITIES WITH HEMA HISTORY: Bilateral leg pain Comparison: None Technique: Multiple chambers scale and color flow Doppler images of the right and left lower extremity arterial system were obtained. Interrogation of the common femoral artery, superficial femoral artery, popliteal artery, and tibial arteries was performed. Findings: Triphasic and biphasic waveforms are seen throughout the right and left lower extremity from the common femoral arterial system to the tibial runoff. Right extremity: Common femoral : 120 cm/s Superficial femoral proximal: 71 cm/s Superficial femoral mid: 36 cm/s Superficial femoral distal : 64 cm/s Popliteal : 27 cm/s Posterior tibial : 38 cm/s Anterior tibial /dorsalis pedis: 17 cm/s Left extremity: Common femoral : 180 cm/s Superficial femoral proximal: 100 cm/s Superficial femoral mid: 105 cm/s Superficial femoral distal : 65 cm/s Popliteal : 32 cm/s Posterior tibial : 58 cm/s Anterior tibial /dorsalis pedis: 35 cm/s IMPRESSION: 1. Velocity suggestive of 20-50% stenosis of the left common femoral artery. http://www.ncbi.nlm.nih.gov/pubmed/71036655 Reported By:
[2018-11-22] MEDS ORDERED: MORPHINE SULFATE INJ 4 MG IVP PRN (13:11)
--- NOTE | 2018-11-22 13:29 | DR.H&P ---
H&P - History & Physical for Day of: H&P Date: 11/21/18 - Chief Complaint Chief Complaint: WEAKNESS, AMS, SYNCOPE, SOB, DIARRHEA - History of Present Illness History of Present Illness: IS A 68 YEAR OLD PATIENT OF OURS WHO PRESENTED TO THE ER VIA EMS WITH FAMILY REPORTING ALTERED MENTAL STATUS, WEAKNESS, DIARRHEA, AND SYNCOPAL EPISODES. SYMPTOMS REPORTEDLY STARTED TODAY. ON EXAMINATION, PATIENT IS NOTED TO BE ORIENTED TO PERSON AND PLACE. HE COMPLAINS OF WEAKNESS, SHORTNESS OF BREATH, AND PAIN TO BILATERAL LEGS. ON ARRIVAL, VITALS WERE 98.1-64-20-99%-182/102. LABS WERE OBTAINED. ABNORMAL LAB VALUES INCLUDE THE FOLLOWING: RBC 3.70, HGB 12.8, HCT 37.8, BUN 36, CREATININE 1.69, GLUCOSE 203, TOTAL BILI 1.20, AST 52, ALK PHOS 203, AMMONIA 89, CRP 13.40, BNP 963, ALBUMIN 2.2. URINALYSIS REVEALED: RBC 10-20, WBC 0-2, BACTERIA 1+, LEUKOCYTES NEGATIVE, OCCULT BLOOD 4+, PROTEIN 3+. BRAIN CT WAS OBTAINED AND REVEALED: no acute abnormalities are demonstrated. A CHEST XRAY WAS OBTAINED AND REVEALED: Stable cardiomegaly and mild pulmonary edema which is more apparent. EKG REVEALED: ATRIAL SENSED VENTRICULAR PACED COMPLEXES WITH HR 61. HE WAS GIVEN NIFEDIPINE 10MG PO X 1 FOR ELEVATED BLOOD PRESSURE. BLOOD PRESSURE WAS NOTED TO DECREASE TO 121/56. HE WAS ADMITTED FOR FURTHER EVALUATION AND TREATMENT OF AMS, DEHYDRATION, SYNCOPAL EPISODE, GENERALIZED WEAKNESS, AND CHF. HE WAS STARTED ON NORMAL SALINE AT KVO, LASIX 40MG IV BID, COREG 25MG PO BID, ALDACTONE 25MG PO DAILY, AND HUMULIN R SLIDING SCALE WITH OTBS ACHS. WE PLAN TO FOLLOW UP WITH AM LABS AND CONTINUE TO MONITOR. - Past Medical History Past Medical History: Coronary Artery Disease, Hypertension, Diabetes, Gout Additional Medical History: pacemaker, defibrillator - Past Surgical History Surgical History: Other, Tonsillectomy - Family History Family Medical History: Diabetes Mellitus, Cancer, [place], Hypertension - Social History Does patient currently use any type of tobacco product: No Have you used tobacco products in the last 12 months: No Type of Tobacco Use: None How many years tobacco product used: 20 Does any household member use tobacco: No Alcohol Use: None Drug Use: None - Medications Home Medications: haloperidol [From Haldol] Allergy (Mild, Verified 11/21/18 15:17) acetaminophen Allergy (Unknown, Verified 11/21/18 15:17) LIVER amitriptyline Allergy (Verified 11/21/18 15:17) Pork/Porcine Containing Products Adverse Reaction (Verified 11/21/18 15:17) CONTINUE taking the following medications aspirin [Aspirin Low Dose] 81 mg PO QDAY 11/21/18 [History] carvedilol 25 mg PO BID 11/21/18 [History] clotrimazole 1 applic TOPICAL BID 11/21/18 [History] eplerenone 25 mg PO DAILY 11/21/18 [History] ferrous sulfate 325 mg PO TID 11/21/18 [History] furosemide 80 mg PO BID 11/21/18 [History] gabapentin 100 mg PO TID 11/21/18 [History] potassium chloride 20 meq PO QDAY 11/21/18 [History] ranitidine HCl 150 mg PO BID 11/21/18 [History] rifaximin 550 mg PO BID 11/21/18 [History] tamsulosin 0.4 mg PO QDAY 11/21/18 [History] - Review of Systems Constitutional: Weakness Eyes: No Symptoms Reported ENT: No Symptoms Reported Respiratory: See HPI, Shortness of Breath, SOB with Excertion Cardiovascular: No Symptoms Reported Gastrointestinal: Diarrhea Genitourinary: No Symptoms Reported Musculoskeletal: Leg Pain Skin: No Symptoms Reported Neurological: Weakness - Physical Exam Vital Signs: Temperature 97.7 F Pulse Rate [Left Brachial] 68 Pulse Rate [Apical] 64 Pulse Rate 64 Respiratory Rate 20 Blood Pressure [Right Arm] 133/76 Blood Pressure [Left Arm] 160/77 Blood Pressure 182/102 O2 Sat by Pulse Oximetry 99 Oriented: Person, Place Eyes: Normal Ear: Normal Nose: Normal Throat: Normal Respiratory: Diminished Throughout Cardiovascular: Normal : Normal Auscultation: Bowel Sounds: Normal Palpation: Normal Tenderness: Diffuse, Mild Skin: Normal Musculoskeletal: Right, Left, Leg, Tender Psychiatric: Normal Mood Description: Calm Affect: Normal Speech Pattern: Clear - Assessment/Plan (1) CHF (congestive heart failure) Qualifiers: Heart failure type: unspecified Heart failure chronicity: acute on chronic Qualified Code(s): I50.9 - Heart failure, unspecified Status: Chronic Plan: LASIX 40MG IV BID, CONTINUE LASIX AND ALDACTONE, CONTINUE TO MONITOR (2) Weakness Status: Acute (3) Altered mental status Qualifiers: Altered mental status type: transient alteration of awareness Qualified Code(s): R40.4 - Transient alteration of awareness Status: Acute (4) Near syncope Status: Acute - Allergies Allergies/Adverse Reactions: Allergies Allergy/AdvReac Type Severity Reaction Status Date / Time haloperidol [From Haldol] Allergy Mild Verified 11/21/18 15:17 acetaminophen Allergy Unknown LIVER Verified 11/21/18 15:17 amitriptyline Allergy Verified 11/21/18 15:17 Pork/Porcine Containing AdvReac Verified 11/21/18 15:17 Products
[2018-11-22] MEDS: HEMOCYTE-PLUS PO SCH ×2 (13:45→21:14)
[2018-11-22] MEDS: MORPHINE SULFATE INJ 2 MG INJ ONE ×2 (13:45)
[2018-11-22] MEDS ORDERED: SNACK - Diabetic Appropriate PO SCH (20:00)
[2018-11-22] MEDS: NS 1000 ML 1,000 ML IV SCH (20:19)
[2018-11-22] MEDS: HumuLIN R SUBCUT PRN (20:20)
[2018-11-23] MEDS: NS 1000 ML 1,000 ML IV SCH (03:27)
[2018-11-23] MEDS: NEURONTIN CAP 100 MG PO SCH ×2 (05:26→13:34)
[2018-11-23] MEDS: HEMOCYTE-PLUS PO SCH ×2 (05:26→13:34)
[2018-11-23] MEDS: HumuLIN R SUBCUT PRN ×2 (05:36→11:29)
[2018-11-23 06:13] LABS: BASOPHILS % (AUTO) 0.4 % (0.2-1.0); EOSINOPHILS # (AUTO) 0.1 x10^3/uL (0.0-0.2); HEMATOCRIT 33.6 % (42.0-54.0); HEMOGLOBIN 11.6 g/dL (13.5-18.0); LYMPHOCYTES % (AUTO) 16.8 % (21.0-51.0); MEAN CORPUSCULAR HEMOGLOBIN 35.1 pg (27.0-34.0); MEAN CORPUSCULAR HGB CONC 34.6 g/dL (33.0-35.0); MEAN CORPUSCULAR VOLUME 101.5 fL (80.0-100.0); MEAN PLATELET VOLUME 9.7 fL (7.4-11.0); MONOCYTES # (AUTO) 0.5 x10^3/uL (0.3-0.8); MONOCYTES % (AUTO) 8.9 % (0.0-13.0); NEUTROPHILS # (AUTO) 4.4 x10^3/uL (2.2-4.8); NEUTROPHILS % (AUTO) 71.9 % (42.0-75.0); PLATELET COUNT 77 X10^3/uL (150.0-450.0); RED BLOOD COUNT 3.31 X10^6/uL (4.7-6.0); RED CELL DISTRIBUTION WIDTH 13.8 % (11.6-16.5); WHITE BLOOD COUNT 6.1 X10^3/uL (3.6-10.0)
[2018-11-23 06:36] LABS: ALBUMIN 1.9 g/dL (3.4-5.0); CALCIUM 8.6 mg/dL (8.5-10.1); CARBON DIOXIDE 25.7 mmol/L (21-32); COR CA(FOR HYPOALB) 10.3 mg/dL (8.5-10.1); CREATININE 1.73 mg/dL (0.70-1.30); TOTAL PROTEIN 7.1 g/dL (6.4-8.2)
--- NOTE | 2018-11-23 06:47 | RAD ---
HISTORY: Shortness of breath Study: Chest AP portable Comparison: 11/22/2018 Findings: There is a pacemaker present on the right. The heart is enlarged. The aorta is calcified. The naomi are normal. No congestive heart failure is noted. The lungs are mildly hyperinflated but free of acute infiltrates. No pleural effusions are identified. The bony thorax is unremarkable. IMPRESSION: Continued cardiomegaly without congestive heart failure Lungs mildly hyperinflated but clear Reported By:
[2018-11-23] MEDS: LASIX IVP SCH (08:22)
[2018-11-23] MEDS: XIFAXAN PO SCH (08:22)
[2018-11-23] MEDS: ASPIRIN EC 81 MG PO SCH (08:23)
[2018-11-23] MEDS: LOTRIMIN CREAM TOP SCH (08:23)
[2018-11-23] MEDS: COREG TAB 25 MG PO SCH (08:23)
[2018-11-23] MEDS: FLOMAX PO SCH (08:23)
[2018-11-23] MEDS: K-DUR TAB 20 MEQ PO SCH (08:23)
[2018-11-23] MEDS: ALDACTONE TAB 25 MG PO SCH (08:23)
[2018-11-23 12:47] VITALS: BP 159/76
== END 2018-11-23 13:45 | disposition home or self-care (01) ==
LOC: ER 15:12 → MED/SURG 15:12
PROVIDERS: ADMIT Internal Medicine; ATTEND Internal Medicine
DX: M79.604 Pain in right leg; R94.4 Abnormal results of kidney function studies; R79.82 Elevated C-reactive protein (CRP); R53.1 Weakness; R94.31 Abnormal electrocardiogram [ECG] [EKG]; K72.90 Hepatic failure, unspecified without coma; M79.605 Pain in left leg; R55 Syncope and collapse; I25.10 Atherosclerotic heart disease of native coronary artery without angina pectoris; I10 Essential (primary) hypertension; R41.82 Altered mental status, unspecified; D64.89 Other specified anemias; M54.5 Low back pain; R06.02 Shortness of breath; I50.9 Heart failure, unspecified; Z95.0 Presence of cardiac pacemaker; R19.7 Diarrhea, unspecified
CPT/HCPCS: 36415; 51702; 70450; 71010; 71045; 72131; 80053; 80061; 81001; 82140; 82550; 82553; 83605; 83735; 83880; 84484; 85025; 86140; 93005; 93925; 94760; 96365; 96367; 96372; 96374; 99282; 99284; A4222; G0378; J1815; J1940; J2270; J3475; J7030

== ENCOUNTER 2020-06-02 19:57 | Inpatient (IN) ==
[2020-06-02 20:12] VITALS: BMI 26.6
--- NOTE | 2020-06-02 20:55 | DR.GENAD ---
HPI <Lian Tucker - Last Filed: 06/03/20 07:53> Time Seen Time Seen by Provider: 06/02/20 20:48 PCP Primary Care Physician: heike CORREIA Comment HPI Comment: Patient presents with the complaint of low abdominal and penis pain . Notes that he had stent placed 2 weeks ago and was supposed to have home health to come to his home for follow up, but that no one has showed up. Notes that he has pain with urination. Notes that he continues to have urine drainage from the Pham. Complaint/Symptoms Chief Complaint Doctors Comments: dysuria Chief Complaint:: PT STATES" I NEED MY KIDNEY STENT CHECKED I HURT IN MY STOMACH AND I HAS SOME BLOOD IN MY BAG" PT HAS INDWELLING PHAM CATH ATTACHED TO LEG BAG. PT HAS SOME SWELLING TO LOWER LT EXT COVID-19 Coronavirus risk:travel/contact w/high risk person: No Has patient experienced Coronavirus symptoms: No Nurses notes reviewed Nurses Notes Review: Yes Source History Provided: Patient Mode of Arrival Mode of Arrival: Ambulatory Timing Onset of Chief Complaint: 06/02/20 Duration Duration: Since Onset PMH <Lian Tucker - Last Filed: 06/03/20 07:53> PMH Past Medical History: Yes Past Medical History: Arthritis, CHF, Coronary Artery Disease, Diabetes, Dyslipidemia, Gout, Hypertension, Liver Disease, PR and Renal Disease Past Surgical History: Yes Surgical History: Angioplasty/Stents, Tonsillectomy and Other Family History History of Family Medical Conditions: Yes Family Medical History: Diabetes Mellitus, Cancer, PR and Hypertension Social History Does any household member use tobacco: No Alcohol Use: None Do you use any recreational Drugs:: No Lives With: Family Lives Where: Home Travel Risk Coronavirus risk:travel/contact w/high risk person: No Has patient experienced Coronavirus symptoms: No Infectious screening In the last 2 months have you had wt loss of >10#?: NO Have you had fever, night sweats or hemotysis?: No Have you traveled outside the country in the last 6 months?: No Isolation: Standard ROS <Lian Tucker - Last Filed: 06/03/20 07:53> Review of Systems Constitutional: No Symptoms Reported Eyes: No Symptoms Reported ENTM: No Symptoms Reported Respiratoy: No Symptoms Reported Cardiovascular: No Symptoms Reported Gastrointestinal/Abdominal: No Symptoms Reported Genitourinary: Dysuria and Pain Neurological: No Symptoms Reported Musculoskeletal: No Symptoms Reported Integumentary: No Symptoms Reported Hematologic/Lymphatic: No Symptoms Reported Endocrine: No Symptoms Reported Psychiatric: No Symptoms Reported All Other Systems: Reviewed and Negative PE <Lian Tucker - Last Filed: 06/03/20 07:53> Vital Signs Vitals: Temperature 97.8 F Pulse Rate [Left Brachial] 55 Pulse Rate 59 Respiratory Rate 17 Blood Pressure [Right Arm] 123/57 Blood Pressure [Left Arm] 90/48 Blood Pressure 89/48 O2 Sat by Pulse Oximetry 99 General Limitations: No Limitations Head Head Exam: Normal Inspection and Atraumatic Eyes Eye exam: Normal Appearance, PERRL and EOMI ENT ENT Exam: Normal Exam Neck Neck Exam: Normal Inspection Chest Chest Inspection: Normal Inspection Respiratory Respiratory Exam: Normal Lung Sounds Bilat Cardiovascular Cardiovascular Exam: Regular Rate and Normal Rhythm Abdominal Exam Abdominal Exam: Normal Inspection, Normal Bowel Sounds and Tenderness Abdominal Tenderness: Suprapubic Extremities Extremities Exam: Normal Inspection and Full ROM Neurologic Neurological Exam: Alert and Oriented X3 Psychiatric Psychiatric Exam: Normal Affect and Normal Mood Skin Skin Exam: Warm and Dry <Michael Denise - Last Filed: 06/03/20 12:09> Vital Signs Vitals: Temperature 97.8 F Pulse Rate [Left Brachial] 55 Pulse Rate 59 Respiratory Rate 17 Blood Pressure [Right Arm] 123/57 Blood Pressure [Left Arm] 90/48 Blood Pressure 89/48 O2 Sat by Pulse Oximetry 99 COURSE <Lian Tucker - Last Filed: 06/03/20 07:53> Reevaluation 1st: Improved (patient had stents placed at [facility]. Trying to transfer patient back to the [facility] for evaluation/treatment of acute on chronic renal failure that may be conplication of stent. Endorsed patient to Dr. Denise at shift change. ) ROR <Lian Tucker - Last Filed: 06/03/20 07:53> Labs Reviewed Laboratory Results Reviewed?: Yes Result Diagrams: 06/02/20 21:48 06/03/20 08:45 Laboratory: WBC 5.3 X10^3/uL (3.6-10.0) 06/02/20 21:48 RBC 2.75 X10^6/uL (4.7-6.0) L 06/02/20 21:48 Hgb 9.6 g/dL (13.5-18.0) L 06/02/20 21:48 Hct 28.8 % (42.0-54.0) L 06/02/20 21:48 MCV 104.7 fL (80.0-100.0) H 06/02/20 21:48 MCH 35.1 pg (27.0-34.0) H 06/02/20 21:48 MCHC 33.5 g/dL (33.0-35.0) 06/02/20 21:48 RDW 15.2 % (11.6-16.5) 06/02/20 21:48 Plt Count 80 X10^3/uL (150.0-450.0) L 06/02/20 21:48 MPV 11.0 fL (7.4-11.0) 06/02/20 21:48 Neut % (Auto) 74.8 % (42.0-75.0) 06/02/20 21:48 Lymph % (Auto) 12.5 % (21.0-51.0) L 06/02/20 21:48 [place] % (Auto) 8.7 % (0.0-13.0) 06/02/20 21:48 Eos % (Auto) 3.3 % (0.9-2.9) H 06/02/20 21:48 Baso % (Auto) 0.7 % (0.2-1.0) 06/02/20 21:48 Neut # (Auto) 3.9 x10^3/uL (2.2-4.8) 06/02/20 21:48 Lymph # (Auto) 0.7 X10^3/uL (1.3-2.9) L 06/02/20 21:48 [place] # (Auto) 0.5 x10^3/uL (0.3-0.8) 06/02/20 21:48 Eos # (Auto) 0.2 x10^3/uL (0.0-0.2) 06/02/20 21:48 Baso # (Auto) 0.0 X10^3/uL (0.0-0.1) 06/02/20 21:48 Absolute Nucleated RBC 0.0 /100WBC 06/02/20 21:48 Sodium 134 mmol/L (136-145) L 06/03/20 08:45 Corrected Sodium 135 mmol/L (136-145) L 06/03/20 08:45 Potassium 5.0 mmol/L (3.5-5.1) 06/03/20 08:45 Chloride 100 mmol/L (98-107) 06/03/20 08:45 Carbon Dioxide 26.3 mmol/L (21-32) 06/03/20 08:45 BUN 105 mg/dL (7-18) H 06/03/20 08:45 Creatinine 3.32 mg/dL (0.70-1.30) H 06/03/20 08:45 Est GFR (MDRD) Af Amer 24 (>60) L 06/03/20 08:45 Est GFR (MDRD) Non-Af 20 (>60) L 06/03/20 08:45 Glucose 135 mg/dL (65-99) H 06/03/20 08:45 Calcium 8.1 mg/dL (8.5-10.1) L 06/03/20 08:45 Corrected Calcium 9.6 mg/dL (8.5-10.1) 06/02/20 21:48 Total Bilirubin 1.00 mg/dL (0.2-1.0) 06/02/20 21:48 AST 50 Units/L (15-37) H 06/02/20 21:48 ALT 25 Units/L (12-78) 06/02/20 21:48 Alkaline Phosphatase 143 Units/L (46-116) H 06/02/20 21:48 Total Protein 7.7 g/dL (6.4-8.2) 06/02/20 21:48 Albumin 2.7 g/dL (3.4-5.0) L 06/02/20 21:48 Globulin 5.0 g/dL (2.5-4.5) H 06/02/20 21:48 Albumin/Globulin Ratio 0.5 Ratio (1.1-2.1) L 06/02/20 21:48 Specimen Type Catherized urine 06/02/20 22:15 Urine Color Dark yellow (YELLOW) 06/02/20 22:15 Urine Appearance Slightly hazy (CLEAR) 06/02/20 22:15 Urine pH 5.0 (5.0 - 8.0) 06/02/20 22:15 Ur Specific [place] 1.020 (1.000-1.030) 06/02/20 22:15 Urine Protein 3+ (NEGATIVE) 06/02/20 22:15 Urine Glucose (UA) Negative (NEGATIVE) 06/02/20 22:15 Urine Ketones Negative (NEGATIVE) 06/02/20 22:15 Urine Occult Blood 5+ (NEGATIVE) 06/02/20 22:15 Urine Nitrite Negative (NEGATIVE) 06/02/20 22:15 Urine Bilirubin Negative (NEGATIVE) 06/02/20 22:15 Urine Urobilinogen Normal (NORMAL) 06/02/20 22:15 Ur Leukocyte Esterase 1+ (NEGATIVE) 06/02/20 22:15 Urine RBC Tntc /HPF (0-3) A 06/02/20 22:15 Urine WBC 3-5 /HPF (0-5) 06/02/20 22:15 Ur Squamous Epith Cells Rare /HPF (NEGATIVE) 06/02/20 22:15 Amorphous Sediment 1+ /HPF (NEGATIVE) 06/02/20 22:15 Urine Bacteria Trace /HPF (NEGATIVE) 06/02/20 22:15 Urine Yeast Rare /HPF (NEGATIVE) 06/02/20 22:15 Ur Culture Indicated? No/not indicated 06/02/20 22:15 Other Results Comments: HISTORY LOWER ABDOMINAL PAIN, HEMATURIA STUDY ABDOMEN/PELVIS W/O CON COMPARISON None TECHNIQUE Multiple axial images of the abdomen and pelvis were obtained from the lung bases to the pubic symphysis without IV contrast. Coronal and sagittal reformats obtained. Dose reduction techniques including Automated Exposure C ontrol (AEC) and adjustment of mA and kV were utilized. FINDINGS Lack of intravenous contrast compromises evaluation of solid organs and vasculature. Thoracic: Cardiomegaly without pericardial effusion. Trace right pleural effusion. Right lung base calcified granuloma. Hepatobiliary: Diffuse nodularity of the liver, suggest cirrhosis. Blunting calcification of the right hepatic lobe. Gallbladder is decompressed containing a a calcified gallstone. Diffuse nonspecific gallbladder wall thickening. A stone is identified at the gallbladder neck. Question a punctate stone in the region of the common duct. Pancreas: No abnormality identified in the pancreas. Spleen: Splenomegaly, measuring 14 cm in AP dimension. Adrenals: Diffuse left adrenal thickening. Genitourinary: Indeterminate left renal 3.2 cm low-density lesion with minimal wall calcification. Prominent in thickened right renal pelvis urothelium suggested. Bladder is mildly distended with diffuse wall thickening. A Pham catheter is in place. Question presence of hyperdense intraluminal material within the bladder. GI: No bowel thickening or inflammatory changes. Appendix is not visualized with certainty. Vascular/Lymphatics: Shotty gastrohepatic and portacaval lymph nodes, measuring up to 10 mm in short axis. Abdominal aorta is normal in caliber. Moderate atherosclerotic calcification. Peritoneum/Other: [No extraluminal air.] [Trace perihepatic fluid.] MSK/Body Wall: No concerning bony lesion identified. Mild grade 1 anterolisthesis at L4-5 with endplate degenerative changes. IMPRESSION Cholelithiasis with nonspecific wall thickening. Question punctate stone in the common duct. Recommend clinical correlation for possible acute cholecystitis. Findings suggest cirrhosis with splenomegaly and trace perihepatic fluid. Question thickening of the right renal pelvis urothelium. Diffuse bladder wall thickening. Findings may be correlated with urinalysis to exclude cystitis or ascending infection. Question hyperdense intraluminal content within the bladder, which may represent debris or hemorrhage. Consider urology consult and further assessment with direct visualization when clinically appropriate. Cardiomegaly. Trace pericardial effusion. Evidence of prior granulomatous disease. Endplate degenerative changes and grade 1 anterolisthesis at L4-5. Electronically signed by: Kamla Blackman (Jun 02, 2020 23:25:34) <Michael Denise - Last Filed: 06/03/20 12:09> Labs Reviewed Laboratory: WBC 5.3 X10^3/uL (3.6-10.0) 06/02/20 21:48 RBC 2.75 X10^6/uL (4.7-6.0) L 06/02/20 21:48 Hgb 9.6 g/dL (13.5-18.0) L 06/02/20 21:48 Hct 28.8 % (42.0-54.0) L 06/02/20 21:48 MCV 104.7 fL (80.0-100.0) H 06/02/20 21:48 MCH 35.1 pg (27.0-34.0) H 06/02/20 21:48 MCHC 33.5 g/dL (33.0-35.0) 06/02/20 21:48 RDW 15.2 % (11.6-16.5) 06/02/20 21:48 Plt Count 80 X10^3/uL (150.0-450.0) L 06/02/20 21:48 MPV 11.0 fL (7.4-11.0) 06/02/20 21:48 Neut % (Auto) 74.8 % (42.0-75.0) 06/02/20 21:48 Lymph % (Auto) 12.5 % (21.0-51.0) L 06/02/20 21:48 [place] % (Auto) 8.7 % (0.0-13.0) 06/02/20 21:48 Eos % (Auto) 3.3 % (0.9-2.9) H 06/02/20 21:48 Baso % (Auto) 0.7 % (0.2-1.0) 06/02/20 21:48 Neut # (Auto) 3.9 x10^3/uL (2.2-4.8) 06/02/20 21:48 Lymph # (Auto) 0.7 X10^3/uL (1.3-2.9) L 06/02/20 21:48 [place] # (Auto) 0.5 x10^3/uL (0.3-0.8) 06/02/20 21:48 Eos # (Auto) 0.2 x10^3/uL (0.0-0.2) 06/02/20 21:48 Baso # (Auto) 0.0 X10^3/uL (0.0-0.1) 06/02/20 21:48 Absolute Nucleated RBC 0.0 /100WBC 06/02/20 21:48 Sodium 134 mmol/L (136-145) L 06/03/20 08:45 Corrected Sodium 135 mmol/L (136-145) L 06/03/20 08:45 Potassium 5.0 mmol/L (3.5-5.1) 06/03/20 08:45 Chloride 100 mmol/L (98-107) 06/03/20 08:45 Carbon Dioxide 26.3 mmol/L (21-32) 06/03/20 08:45 BUN 105 mg/dL (7-18) H 06/03/20 08:45 Creatinine 3.32 mg/dL (0.70-1.30) H 06/03/20 08:45 Est GFR (MDRD) Af Amer 24 (>60) L 06/03/20 08:45 Est GFR (MDRD) Non-Af 20 (>60) L 06/03/20 08:45 Glucose 135 mg/dL (65-99) H 06/03/20 08:45 Calcium 8.1 mg/dL (8.5-10.1) L 06/03/20 08:45 Corrected Calcium 9.6 mg/dL (8.5-10.1) 06/02/20 21:48 Total Bilirubin 1.00 mg/dL (0.2-1.0) 06/02/20 21:48 AST 50 Units/L (15-37) H 06/02/20 21:48 ALT 25 Units/L (12-78) 06/02/20 21:48 Alkaline Phosphatase 143 Units/L (46-116) H 06/02/20 21:48 Total Protein 7.7 g/dL (6.4-8.2) 06/02/20 21:48 Albumin 2.7 g/dL (3.4-5.0) L 06/02/20 21:48 Globulin 5.0 g/dL (2.5-4.5) H 06/02/20 21:48 Albumin/Globulin Ratio 0.5 Ratio (1.1-2.1) L 06/02/20 21:48 Specimen Type Catherized urine 06/02/20 22:15 Urine Color Dark yellow (YELLOW) 06/02/20 22:15 Urine Appearance Slightly hazy (CLEAR) 06/02/20 22:15 Urine pH 5.0 (5.0 - 8.0) 06/02/20 22:15 Ur Specific [place] 1.020 (1.000-1.030) 06/02/20 22:15 Urine Protein 3+ (NEGATIVE) 06/02/20 22:15 Urine Glucose (UA) Negative (NEGATIVE) 06/02/20 22:15 Urine Ketones Negative (NEGATIVE) 06/02/20 22:15 Urine Occult Blood 5+ (NEGATIVE) 06/02/20 22:15 Urine Nitrite Negative (NEGATIVE) 06/02/20 22:15 Urine Bilirubin Negative (NEGATIVE) 06/02/20 22:15 Urine Urobilinogen Normal (NORMAL) 06/02/20 22:15 Ur Leukocyte Esterase 1+ (NEGATIVE) 06/02/20 22:15 Urine RBC Tntc /HPF (0-3) A 06/02/20 22:15 Urine WBC 3-5 /HPF (0-5) 06/02/20 22:15 Ur Squamous Epith Cells Rare /HPF (NEGATIVE) 06/02/20 22:15 Amorphous Sediment 1+ /HPF (NEGATIVE) 06/02/20 22:15 Urine Bacteria Trace /HPF (NEGATIVE) 06/02/20 22:15 Urine Yeast Rare /HPF (NEGATIVE) 06/02/20 22:15 Ur Culture Indicated? No/not indicated 06/02/20 22:15 Opioid <Lian Tucker - Last Filed: 06/03/20 07:53> Opioid Risk Tool Age (Luis Felipe box if 16-45): No History of Preadolescent Sexual Abuse: No Total: 0 Total Score Risk Category: Low Risk Copyright: Arben DOSS predicting aberrant behaviors <Michael Denise - Last Filed: 06/03/20 12:09> Opioid Risk Tool Total: 0 Total Score Risk Category: Low Risk <Lian Tucker - Last Filed: 06/03/20 07:53> Diagnosis Discharge Problem: Acute on chronic kidney failure
[2020-06-02 21:55] LABS: BASOPHILS % (AUTO) 0.7 % (0.2-1.0); EOSINOPHILS # (AUTO) 0.2 x10^3/uL (0.0-0.2); EOSINOPHILS % (AUTO) 3.3 % (0.9-2.9); HEMATOCRIT 28.8 % (42.0-54.0); HEMOGLOBIN 9.6 g/dL (13.5-18.0); LYMPHOCYTES # (AUTO) 0.7 X10^3/uL (1.3-2.9); LYMPHOCYTES % (AUTO) 12.5 % (21.0-51.0); MEAN CORPUSCULAR HEMOGLOBIN 35.1 pg (27.0-34.0); MEAN CORPUSCULAR HGB CONC 33.5 g/dL (33.0-35.0); MEAN CORPUSCULAR VOLUME 104.7 fL (80.0-100.0); MONOCYTES # (AUTO) 0.5 x10^3/uL (0.3-0.8); MONOCYTES % (AUTO) 8.7 % (0.0-13.0); NEUTROPHILS # (AUTO) 3.9 x10^3/uL (2.2-4.8); NEUTROPHILS % (AUTO) 74.8 % (42.0-75.0); PLATELET COUNT 80 X10^3/uL (150.0-450.0); RED BLOOD COUNT 2.75 X10^6/uL (4.7-6.0); RED CELL DISTRIBUTION WIDTH 15.2 % (11.6-16.5); WHITE BLOOD COUNT 5.3 X10^3/uL (3.6-10.0)
--- NOTE | 2020-06-02 21:57 | RAD ---
HISTORYLow abdominal [id number]/09/2020.FINDINGSBowel gas pattern is nonobstructive. There is a calcificatio n overlying the right upper quadrant, likely reflecting a gallstone. Vascular calcifications are pres ent. Otherwise, no suspicious calcifications overlie the abdomen or pelvis. No free air is identified . No acute osseous findings.IMPRESSION1. No acute abnormality by radiograph.2. Cholelithiasis.Electro nically signed by: Jadiel Levy (Jun 02, 2020 21:55:41)
[2020-06-02 22:07] LABS: ALBUMIN 2.7 g/dL (3.4-5.0); CALCIUM 8.6 mg/dL (8.5-10.1); CARBON DIOXIDE 27.8 mmol/L (21-32); COR CA(FOR HYPOALB) 9.6 mg/dL (8.5-10.1); CREATININE 3.39 mg/dL (0.70-1.30); TOTAL PROTEIN 7.7 g/dL (6.4-8.2)
[2020-06-02 22:22] LABS: BILIRUBIN,URINE NEGATIVE (NEGATIVE); BLOOD/HEMOGLOBIN,URINE 5+ (NEGATIVE); GLUCOSE, URINE NEGATIVE (NEGATIVE); KETONES,URINE NEGATIVE (NEGATIVE); LEUKOCYTE ESTERASE ,URINE 1+ (NEGATIVE); NITRITES,URINE NEGATIVE (NEGATIVE); PROTEIN,URINE 3+ (NEGATIVE); UROBILINOGEN,URINE NORMAL (NORMAL)
[2020-06-02 22:27] LABS: APPEARANCE,URINE SLIGHTLY HAZY (CLEAR); COLOR,URINE DARK YELLOW (YELLOW)
[2020-06-02 22:28] LABS: AMORPHOUS SEDIMENT,UR 1+ /HPF (NEGATIVE); BACTERIA,URINE TRACE /HPF (NEGATIVE); RBC,URINE TNTC /HPF (0-3); SQUAMOUS EPITHELIAL CELL,UR RARE /HPF (NEGATIVE)
[2020-06-02 22:29] LABS: YEAST,URINE RARE /HPF (NEGATIVE)
--- NOTE | 2020-06-02 23:26 | CT ---
HISTORYLOWER ABDOMINAL PAIN, HEMATURIASTUDYABDOMEN/PELVIS W/O CONCOMPARISONNoneTECHNIQUEMultiple axial images of the abdomen and pelvis were obtained from the lung bases to the pubic symphysis without IV contrast. Coronal and sagittal reformats obtained. Dose reduction techniques including Automated Exposure Control (AEC) and adjustment of mA and kV were utilized.FINDINGSLack of intravenous contrast compromises evaluation of solid organs and vasculature.Thoracic: Cardiomegaly without pericardial effusion. Trace right pleural effusion. Right lung base calcified granuloma.Hepatobiliary: Diffuse nodularity of the liver, suggest cirrhosis. Blunting calcification of the right hepatic lobe. Gallbladder is decompressed containing a a calcified gallstone. Diffuse nonspecific gallbladder wall thickening. A stone is identified at the gallbladder neck. Question a punctate stone in the region of the common duct.Pancreas: No abnormality identified in the pancreas.Spleen: Splenomegaly, measuring 14 cm in AP dimension.Adrenals: Diffuse left adrenal thickening.Genitourinary: Indeterminate left renal 3.2 cm low-density lesion with minimal wall calcification. Prominent in thickened right renal pelvis urothelium suggested. Bladder is mildly distended with diffuse wall thickening. A Leonard catheter is in place. Question presence of hyperdense intraluminal material within the bladder.GI: No bowel thickening or inflammatory changes. Appendix is not visualized with certainty.Vascular/Lymphatics: Shotty gastrohepatic and portacaval lymph nodes, measuring up to 10 mm in short axis. Abdominal aorta is normal in caliber. Moderate atherosclerotic calcification.Peritoneum/Other: [No extraluminal air.] [Trace perihepatic fluid.]MSK/Body Wall: No concerning bony lesion identified. Mild grade 1 anterolisthesis at L4-5 with endplate degenerative changes.IMPRESSIONCholelithiasis with nonspecific wall thickening. Question punctate stone in the common duct. Recommend clinical correlation for possible acute cholecystitis.Findings suggest cirrhosis with splenomegaly and trace perihepatic fluid.Question thickening of the right renal pelvis urothelium. Diffuse bladder wall thickening. Findings may be correlated with urinalysis to exclude cystitis or ascending infection.Question hyperdense intraluminal content within the bladder, which may represent debris or hemorrhage. Consider urology consult and further assessment with direct visualization when clinically appropriate.Cardiomegaly. Trace pericardial effusion. Evidence of prior granulomatous disease.Endplate degenerative changes and grade 1 anterolisthesis at L4-5.Electronically signed by: Kamla Blackman (Jun 02, 2020 23:25:34)
[2020-06-03] MEDS ORDERED: ZOFRAN INJ 4 MG VIAL IVP ONE (01:49)
[2020-06-03] MEDS ORDERED: NS 1000 ML 1,000 ML IV ONE ×2 (01:49→09:08)
[2020-06-03] MEDS ORDERED: MORPHINE SULFATE INJ 2 MG INJ IVP ONE (01:49)
[2020-06-03] MEDS ORDERED: MORPHINE SULFATE INJ 2 MG INJ ONE (03:07)
[2020-06-03] MEDS ORDERED: ZOFRAN INJ 4 MG VIAL ONE (03:07)
[2020-06-03] MEDS ORDERED: NS 1000 ML 1,000 ML ONE ×2 (03:08→09:24)
--- NOTE | 2020-06-03 08:53 | DR.GENAD ---
HPI Time Seen Time Seen by Provider: 06/02/20 20:48 PCP Primary Care Physician: heike Complaint/Symptoms Chief Complaint:: PT STATES" I NEED MY KIDNEY STENT CHECKED I HURT IN MY STOMACH AND I HAS SOME BLOOD IN MY BAG" PT HAS INDWELLING PHAM CATH ATTACHED TO LEG BAG. PT HAS SOME SWELLING TO LOWER LT EXT COVID-19 Coronavirus risk:travel/contact w/high risk person: No Has patient experienced Coronavirus symptoms: No Nurses notes reviewed Nurses Notes Review: Yes Source History Provided: Patient Mode of Arrival Mode of Arrival: Ambulatory Timing Onset of Chief Complaint: 06/02/20 Duration Duration: Since Onset PMH PMH Past Medical History: Yes Past Medical History: Arthritis, CHF, Coronary Artery Disease, Diabetes, Dyslipidemia, Gout, Hypertension, Liver Disease, [place] and Renal Disease Past Surgical History: Yes Surgical History: Angioplasty/Stents, Tonsillectomy and Other Family History History of Family Medical Conditions: Yes Family Medical History: Diabetes Mellitus, Cancer, [place] and Hypertension Social History Does any household member use tobacco: No Alcohol Use: None Do you use any recreational Drugs:: No Lives With: Family Lives Where: Home Travel Risk Coronavirus risk:travel/contact w/high risk person: No Has patient experienced Coronavirus symptoms: No Infectious screening In the last 2 months have you had wt loss of >10#?: NO Have you had fever, night sweats or hemotysis?: No Have you traveled outside the country in the last 6 months?: No Isolation: Standard PE Vital Signs Vitals: Temperature 97.8 F Pulse Rate [Left Brachial] 55 Pulse Rate 59 Respiratory Rate 17 Blood Pressure [Right Arm] 123/57 Blood Pressure [Left Arm] 90/48 Blood Pressure 89/48 O2 Sat by Pulse Oximetry 99 ROR Labs Reviewed Result Diagrams: 06/02/20 21:48 06/03/20 08:45 Laboratory: WBC 5.3 X10^3/uL (3.6-10.0) 06/02/20 21:48 RBC 2.75 X10^6/uL (4.7-6.0) L 06/02/20 21:48 Hgb 9.6 g/dL (13.5-18.0) L 06/02/20 21:48 Hct 28.8 % (42.0-54.0) L 06/02/20 21:48 MCV 104.7 fL (80.0-100.0) H 06/02/20 21:48 MCH 35.1 pg (27.0-34.0) H 06/02/20 21:48 MCHC 33.5 g/dL (33.0-35.0) 06/02/20 21:48 RDW 15.2 % (11.6-16.5) 06/02/20 21:48 Plt Count 80 X10^3/uL (150.0-450.0) L 06/02/20 21:48 MPV 11.0 fL (7.4-11.0) 06/02/20 21:48 Neut % (Auto) 74.8 % (42.0-75.0) 06/02/20 21:48 Lymph % (Auto) 12.5 % (21.0-51.0) L 06/02/20 21:48 [place] % (Auto) 8.7 % (0.0-13.0) 06/02/20 21:48 Eos % (Auto) 3.3 % (0.9-2.9) H 06/02/20 21:48 Baso % (Auto) 0.7 % (0.2-1.0) 06/02/20 21:48 Neut # (Auto) 3.9 x10^3/uL (2.2-4.8) 06/02/20 21:48 Lymph # (Auto) 0.7 X10^3/uL (1.3-2.9) L 06/02/20 21:48 [place] # (Auto) 0.5 x10^3/uL (0.3-0.8) 06/02/20 21:48 Eos # (Auto) 0.2 x10^3/uL (0.0-0.2) 06/02/20 21:48 Baso # (Auto) 0.0 X10^3/uL (0.0-0.1) 06/02/20 21:48 Absolute Nucleated RBC 0.0 /100WBC 06/02/20 21:48 Sodium 134 mmol/L (136-145) L 06/03/20 08:45 Corrected Sodium 135 mmol/L (136-145) L 06/03/20 08:45 Potassium 5.0 mmol/L (3.5-5.1) 06/03/20 08:45 Chloride 100 mmol/L (98-107) 06/03/20 08:45 Carbon Dioxide 26.3 mmol/L (21-32) 06/03/20 08:45 BUN 105 mg/dL (7-18) H 06/03/20 08:45 Creatinine 3.32 mg/dL (0.70-1.30) H 06/03/20 08:45 Est GFR (MDRD) Af Amer 24 (>60) L 06/03/20 08:45 Est GFR (MDRD) Non-Af 20 (>60) L 06/03/20 08:45 Glucose 135 mg/dL (65-99) H 06/03/20 08:45 Calcium 8.1 mg/dL (8.5-10.1) L 06/03/20 08:45 Corrected Calcium 9.6 mg/dL (8.5-10.1) 06/02/20 21:48 Total Bilirubin 1.00 mg/dL (0.2-1.0) 06/02/20 21:48 AST 50 Units/L (15-37) H 06/02/20 21:48 ALT 25 Units/L (12-78) 06/02/20 21:48 Alkaline Phosphatase 143 Units/L (46-116) H 06/02/20 21:48 Total Protein 7.7 g/dL (6.4-8.2) 06/02/20 21:48 Albumin 2.7 g/dL (3.4-5.0) L 06/02/20 21:48 Globulin 5.0 g/dL (2.5-4.5) H 06/02/20 21:48 Albumin/Globulin Ratio 0.5 Ratio (1.1-2.1) L 06/02/20 21:48 Specimen Type Catherized urine 06/02/20 22:15 Urine Color Dark yellow (YELLOW) 06/02/20 22:15 Urine Appearance Slightly hazy (CLEAR) 06/02/20 22:15 Urine pH 5.0 (5.0 - 8.0) 06/02/20 22:15 Ur Specific [place] 1.020 (1.000-1.030) 06/02/20 22:15 Urine Protein 3+ (NEGATIVE) 06/02/20 22:15 Urine Glucose (UA) Negative (NEGATIVE) 06/02/20 22:15 Urine Ketones Negative (NEGATIVE) 06/02/20 22:15 Urine Occult Blood 5+ (NEGATIVE) 06/02/20 22:15 Urine Nitrite Negative (NEGATIVE) 06/02/20 22:15 Urine Bilirubin Negative (NEGATIVE) 06/02/20 22:15 Urine Urobilinogen Normal (NORMAL) 06/02/20 22:15 Ur Leukocyte Esterase 1+ (NEGATIVE) 06/02/20 22:15 Urine RBC Tntc /HPF (0-3) A 06/02/20 22:15 Urine WBC 3-5 /HPF (0-5) 06/02/20 22:15 Ur Squamous Epith Cells Rare /HPF (NEGATIVE) 06/02/20 22:15 Amorphous Sediment 1+ /HPF (NEGATIVE) 06/02/20 22:15 Urine Bacteria Trace /HPF (NEGATIVE) 06/02/20 22:15 Urine Yeast Rare /HPF (NEGATIVE) 06/02/20 22:15 Ur Culture Indicated? No/not indicated 06/02/20 22:15 Opioid Opioid Risk Tool Age (Luis Felipe box if 16-45): No History of Preadolescent Sexual Abuse: No Total: 0 Total Score Risk Category: Low Risk Copyright: Arben DOSS predicting aberrant behaviors Diagnosis Discharge Problem: Acute on chronic kidney failure
[2020-06-03 09:01] LABS: CALCIUM 8.1 mg/dL (8.5-10.1); CARBON DIOXIDE 26.3 mmol/L (21-32); CREATININE 3.32 mg/dL (0.70-1.30)
[2020-06-03] MEDS: NS 1000 ML 1,000 ML IV SCH ×4 (13:00→20:13)
[2020-06-03] MEDS: ZYLOPRIM PO SCH (13:07)
[2020-06-04] MEDS: NS 1000 ML 1,000 ML IV SCH ×3 (02:00→12:08)
[2020-06-04 06:08] LABS: BILIRUBIN,URINE NEGATIVE (NEGATIVE); BLOOD/HEMOGLOBIN,URINE 3+ (NEGATIVE); GLUCOSE, URINE NEGATIVE (NEGATIVE); KETONES,URINE NEGATIVE (NEGATIVE); LEUKOCYTE ESTERASE ,URINE 1+ (NEGATIVE); NITRITES,URINE NEGATIVE (NEGATIVE); PROTEIN,URINE NEGATIVE (NEGATIVE); UROBILINOGEN,URINE NORMAL (NORMAL)
[2020-06-04 06:17] LABS: APPEARANCE,URINE CLEAR (CLEAR); COLOR,URINE YELLOW (YELLOW)
[2020-06-04 06:20] LABS: AMORPHOUS SEDIMENT,UR TRACE /HPF (NEGATIVE); BACTERIA,URINE NEGATIVE /HPF (NEGATIVE); SQUAMOUS EPITHELIAL CELL,UR RARE /HPF (NEGATIVE)
[2020-06-04 06:35] LABS: BASOPHILS % (AUTO) 0.5 % (0.2-1.0); EOSINOPHILS # (AUTO) 0.1 x10^3/uL (0.0-0.2); EOSINOPHILS % (AUTO) 2.2 % (0.9-2.9); HEMATOCRIT 29.3 % (42.0-54.0); HEMOGLOBIN 9.6 g/dL (13.5-18.0); LYMPHOCYTES # (AUTO) 0.6 X10^3/uL (1.3-2.9); LYMPHOCYTES % (AUTO) 11.5 % (21.0-51.0); MEAN CORPUSCULAR HGB CONC 32.8 g/dL (33.0-35.0); MEAN CORPUSCULAR VOLUME 106.6 fL (80.0-100.0); MEAN PLATELET VOLUME 9.6 fL (7.4-11.0); MONOCYTES # (AUTO) 0.3 x10^3/uL (0.3-0.8); MONOCYTES % (AUTO) 6.4 % (0.0-13.0); NEUTROPHILS # (AUTO) 4.2 x10^3/uL (2.2-4.8); NEUTROPHILS % (AUTO) 79.4 % (42.0-75.0); PLATELET COUNT 105 X10^3/uL (150.0-450.0); RED BLOOD COUNT 2.75 X10^6/uL (4.7-6.0); RED CELL DISTRIBUTION WIDTH 15.3 % (11.6-16.5); WHITE BLOOD COUNT 5.3 X10^3/uL (3.6-10.0)
[2020-06-04 06:36] LABS: ALBUMIN 2.7 g/dL (3.4-5.0); CALCIUM 8.1 mg/dL (8.5-10.1); CARBON DIOXIDE 19.3 mmol/L (21-32); COR CA(FOR HYPOALB) 9.1 mg/dL (8.5-10.1); CREATININE 3.1 mg/dL (0.70-1.30); TOTAL PROTEIN 7.7 g/dL (6.4-8.2)
[2020-06-04 07:07] LABS: PLATELET MORPHOLOGY COMMENT NORMAL (NORMAL)
[2020-06-04] MEDS ORDERED: NS 1000 ML 1,000 ML IV ONE (08:24)
[2020-06-04] MEDS: ZYLOPRIM PO SCH (08:33)
[2020-06-04] MEDS ORDERED: THIAMINE HCL INJ IVP SCH (09:00)
[2020-06-04] MEDS ORDERED: VITAMIN B-1 PO SCH (09:00)
[2020-06-04] MEDS ORDERED: ALDACTONE TAB 25 MG PO SCH (10:00)
[2020-06-04] MEDS ORDERED: LASIX IVP SCH (10:00)
[2020-06-04 17:48] VITALS: BP 120/63
== END 2020-06-04 17:40 | disposition short-term general hospital (02) | DRG 684 ==
LOC: ER 19:58 → MED/SURG 06-03 09:41
PROVIDERS: ADMIT Obstetrics & Gynecology Obstetrics; ATTEND Obstetrics & Gynecology Obstetrics
DX: R31.9 Hematuria, unspecified; E11.22 Type 2 diabetes mellitus with diabetic chronic kidney disease; R30.0 Dysuria; R10.9 Unspecified abdominal pain; N17.9 Acute kidney failure, unspecified; Z98.890 Other specified postprocedural states; I12.9 Hypertensive chronic kidney disease with stage 1 through stage 4 chronic kidney disease, or unspecified chronic kidney disease; M10.9 Gout, unspecified; Z11.59 Encounter for screening for other viral diseases; N18.9 Chronic kidney disease, unspecified
CPT/HCPCS: 36415; 74000; 74018; 74176; 80048; 80053; 81001; 82607; 82728; 82746; 83540; 84425; 84466; 85025; 87635; 96365; 96367; 96374; 96375; 99284; A4216; A4222; J1940; J2270; J2405; J7030